=== PATIENT | female | born 1940 | race Caucasian/White ===

== ENCOUNTER 2017-11-27 00:17 | Outpatient (CLI) | payer MEDICARE, SELFPAY ==
--- NOTE | 2017-11-27 09:11 | DI.MAMMO_ITS ---
SYMPTOM/DIAGNOSIS: SCREENING, Z12.31 MAMMOGRAM: 11/27 Mammograms were interpreted according to the usual protocol including computer analysis with CAD system, tomosynthesis and C view imaging. The breasts are of moderate density with fairly symmetrical distribution of fibroglandular tissue. No dominant mass or clumped microcalcification is identified in either breast. The current examination is compared with previous examinations including 2015 and there has been no gross interval change in appearance in comparison with previous studies. CONCLUSION: No specific evidence of malignancy at this time. Routine screening examinations are suggested at yearly intervals in this age group according to the ACS/ACR guidelines. Category 1, breast density category B. MQSA ASSESSMENT OF FINDINGS: Negative. Category 1. Patient will receive a letter notifying them of these results. BI-RADS category B. There are scattered areas of fibroglandular density.
== END 2017-11-27 00:37 ==
PROVIDERS: Visit Provider Nurse Practitioner Gerontology
DX: Z12.31 Encounter for screening mammogram for malignant neoplasm of breast (principal)
CPT/HCPCS: 77063; 77067

== ENCOUNTER 2017-12-18 00:57 | Outpatient (CLI) | payer MEDICARE, SELFPAY ==
[2017-12-18 13:12] LABS: ALT 17 U/L (12-78); AST 16 U/L (15-37); Albumin 3.4 g/dL (3.4-5.0); Alkaline Phosphatase 51 U/L (46-116); Anion Gap 8.1 mmol/L (3-11); BUN 16 mg/dL (7-18); Bilirubin, Total 0.6 mg/dL (0.2-1.0); CO2 31.9 mmol/L (21.0-32.0); CREATININE 0.87 mg/dL (0.55-1.02); Calcium 9.3 mg/dL (8.5-10.1); Chloride 100 mmol/L (98-107); Cholesterol 198 mg/dL (50-200); Glucose 96 mg/dL (70-100); HDL Cholesterol 60 mg/dL (40-60); LDL CHOLESTEROL 128 mg/dL (<100); Potassium 3.3 mmol/L (3.5-5.1); Sodium 140 mmol/L (136-145); TSH (W/Ref FT4) 1.81 uIU/mL (0.358-3.74); Triglyceride 144 mg/dL (30-150)
== END 2017-12-18 01:17 ==
PROVIDERS: Visit Provider Nurse Practitioner Gerontology
DX: E03.9 Hypothyroidism, unspecified (principal); E78.5 Hyperlipidemia, unspecified; I10 Essential (primary) hypertension
CPT/HCPCS: 36415; 80053; 80061; 83721; 84443

== ENCOUNTER 2018-01-30 01:10 | Outpatient (CLI) | payer MEDICARE, SELFPAY ==
[2018-01-30 13:09] LABS: Potassium 3.2 mmol/L (3.5-5.1)
== END 2018-01-30 01:30 ==
DX: E87.6 Hypokalemia (principal)
CPT/HCPCS: 36415; 84132

== ENCOUNTER 2018-06-27 11:51 | Outpatient (CLI) | payer MEDICARE, SELFPAY ==
[2018-06-27 13:19] LABS: Potassium 4.4 mmol/L (3.5-5.1)
== END 2018-06-27 12:11 ==
DX: E87.6 Hypokalemia (principal)
CPT/HCPCS: 36415; 84132

== ENCOUNTER 2018-07-12 02:26 | Outpatient (CLI) | payer MEDICARE, SELFPAY ==
[2018-07-12] MEDS: Inhaler, Assist Device 1 EACH MC (08:47)
[2018-07-12] MEDS: Albuterol HFA 18 GM 200 PUFF INH IH (08:47)
--- NOTE | 2018-07-12 13:41 | PFT_ITS ---
PULMONARY FUNCTION TEST REPORT DATE OF SERVICE: July 12, 2018 REQUESTING PROVIDER: Kayla Jalloh N.P. Spirometry shows severe obstructive airways disease with significant bronchodilator response. Lung volumes show no evidence of restriction. Diffusion capacity severely reduced, which is mildly reduced when corrected to alveolar volume. Airways resistance markedly elevated. IMPRESSION: Severe obstructive airways disease with significant bronchodilator response. This is associated with severe diffusion defect and markedly elevated airways resistance. Clinical correlation recommended. SHARA/bud D/
== END 2018-07-12 02:46 ==
DX: J44.9 Chronic obstructive pulmonary disease, unspecified (principal); R06.09 Other forms of dyspnea; Z87.891 Personal history of nicotine dependence
CPT/HCPCS: 94060; 94150; 94726; 94729

== ENCOUNTER 2018-12-06 03:34 | Outpatient (CLI) | payer MEDICARE, SELFPAY ==
[2018-12-06 13:03] LABS: ALT 15 U/L (14-59); AST 17 U/L (15-37); Albumin 3.3 g/dL (3.4-5.0); Alkaline Phosphatase 52 U/L (46-116); BUN 13 mg/dL (7-18); Bilirubin, Total 0.5 mg/dL (0.2-1.0); CREATININE 0.92 mg/dL (0.55-1.02); Calcium 9.1 mg/dL (8.5-10.1); Calculated LDL 115 mg/dL; Chloride 99 mmol/L (98-107); Cholesterol 200 mg/dL (50-200); Estimated GFR 59.51 (mL/min/1.73m2); Glucose 101 mg/dL (70-100); HDL Cholesterol 56 mg/dL (40-60); Potassium 4.1 mmol/L (3.5-5.1); Sodium 141 mmol/L (136-145); TSH (W/Ref FT4) 2.15 uIU/mL (0.36-3.74); Triglyceride 149 mg/dL (30-150)
== END 2018-12-06 03:54 ==
DX: E78.5 Hyperlipidemia, unspecified (principal); E87.6 Hypokalemia; G47.00 Insomnia, unspecified; I10 Essential (primary) hypertension; J44.9 Chronic obstructive pulmonary disease, unspecified; K63.5 Polyp of colon; Z80.0 Family history of malignant neoplasm of digestive organs; E03.9 Hypothyroidism, unspecified
CPT/HCPCS: 36415; 80053; 80061; 84443

== ENCOUNTER 2019-07-23 01:47 | Outpatient (CLI) | payer MEDICARE, SELFPAY ==
[2019-07-23 13:58] LABS: Potassium 3.7 mmol/L (3.5-5.1); TSH (W/Ref FT4) 2.15 uIU/mL (0.36-3.74)
== END 2019-07-23 02:07 ==
DX: E03.9 Hypothyroidism, unspecified (principal); E87.6 Hypokalemia; G47.00 Insomnia, unspecified
CPT/HCPCS: 36415; 84132; 84443

== ENCOUNTER 2019-08-27 01:35 | Outpatient (CLI) | payer MEDICARE, SELFPAY ==
--- NOTE | 2019-08-27 10:28 | DI.MAMMO_ITS ---
EXAM: MG MAMMO SCREENING CLINICAL HISTORY: screening, Z12.39 TECHNIQUE: Bilateral full field digital CC and MLO mammographic images were obtained with 3D tomosyn thesis and utilizing computer aided detection (CAD). COMPARISON: Available for comparison. FINDINGS: Masses/Architectural Distortion: None seen. Microcalcifications: No suspicious pleomorphic-type are seen. Skin Thickening/Nipple Retraction: None. IMPRESSION: 1. No significant interval change with no specific features of malignancy noted. 2. Unless there is more urgent need, screening mammography is recommended, as per [employer] guidelines. BI-RADS Category 1 - Negative Breast Density - Category B - Scattered areas of fibroglandular density A negative radiographic report should not delay biopsy if a dominant or clinically suspicious mass is present. Up to ten percent of cancers are not identified on mammography. A negative report may reinforce clinical impression. Adenosis and dense breasts may obscure an underlying neoplasm. False positive reports average 6 to 10%. Patient will receive a letter notifying them of these results.
== END 2019-08-27 01:55 ==
DX: Z12.31 Encounter for screening mammogram for malignant neoplasm of breast (principal)
CPT/HCPCS: 77063; 77067

== ENCOUNTER 2020-01-01 03:01 | Outpatient (CLI) | payer MEDICARE, SELFPAY ==
[2020-01-01 13:29] LABS: ALT 17 U/L (14-59); AST 15 U/L (15-37); Albumin 3.7 g/dL (3.4-5.0); Alkaline Phosphatase 49 U/L (46-116); Anion Gap 9.8 mmol/L (3-11); BUN 16 mg/dL (7-18); Bilirubin, Total 0.6 mg/dL (0.2-1.0); CO2 29.2 mmol/L (21.0-32.0); CREATININE 0.91 mg/dL (0.55-1.02); Calcium 9.2 mg/dL (8.5-10.1); Chloride 101 mmol/L (98-107); Estimated GFR 59.94 (mL/min/1.73m2); Glucose 105 mg/dL (74-106); Potassium 4.1 mmol/L (3.5-5.1); Sodium 140 mmol/L (136-145); TSH (W/Ref FT4) 1.88 uIU/mL (0.36-3.74); Total Protein 7.1 g/dL (6.4-8.2)
== END 2020-01-01 03:21 ==
DX: E03.9 Hypothyroidism, unspecified (principal); I10 Essential (primary) hypertension; G47.00 Insomnia, unspecified
CPT/HCPCS: 36415; 80053; 84443

== ENCOUNTER 2020-06-08 03:20 | Outpatient (CLI) | payer MEDICARE, SELFPAY ==
[2020-06-09 14:15] LABS: COVID-19 RT-PCR UVMMC Result Negative (Negative)
== END 2020-06-08 03:21 | disposition home or self-care (01) ==
LOC: LBO 03:20
DX: Z20.822 Contact with and (suspected) exposure to COVID-19 (principal)
CPT/HCPCS: U0003; U0005

== ENCOUNTER → 2020-06-12 12:49 | Outpatient (BNVA) | payer MEDICARE, SELFPAY | PROVIDERS: Visit Provider Physical Therapy Assistant | DX: Z12.11 Encounter for screening for malignant neoplasm of colon (principal); Z80.0 Family history of malignant neoplasm of digestive organs; I10 Essential (primary) hypertension; J44.9 Chronic obstructive pulmonary disease, unspecified ==

== ENCOUNTER 2020-06-26 02:26 | Outpatient (CLI) | payer MEDICARE, SELFPAY ==
[2020-06-26 10:26] LABS: Source Nasal/Nares
[2020-06-26 13:33] LABS: COVID-19 PCR Negative (Negative)
== END 2020-06-26 02:27 | disposition home or self-care (01) ==
LOC: LBO 02:26
PROVIDERS: Visit Provider Surgery
DX: Z20.822 Contact with and (suspected) exposure to COVID-19 (principal); Z01.818 Encounter for other preprocedural examination
CPT/HCPCS: 87635

== ENCOUNTER 2020-06-29 07:20 | Day surgery (SDC) | payer MEDICARE, SELFPAY ==
--- NOTE | 2020-06-29 06:32 | W.COLOREPORT ---
Date of service: 06/29/20 Time of Service: 08:12 Colonoscopy Report Date of procedure: 06/29/20 Pre-op diagnosis general: Family history of colon cancer, screening Post-op diagnosis procedure note: same Procedure: Colonoscopy with polypectomy Surgeon: Soledad Zavala Anesthesia Type: General:No Airway (ASA 2/ Efrain Catherine CRNA) Estimated blood loss (mL): 5 Pathology: other (Ascending, Transverse, sigmoid x2 and rectal polyps x2) Complications: None Disposition: same day Indications: The patient is here for Colonoscopy pre-op. Her last screening was in 2013 and was remarkable for hyperplastic polyps. She has a family history of colon cancer at the age of 47. She has not had any bowel habit changes. -Discussed colonoscopy bowel prep as well as the procedure. Discussed possible complications of the procedure to include bleeding, pain, perforation, missed small lesion/polyp, sore throat, aspiration and adverse reaction to the medications. Questions were answered to patient?s satisfaction. No guarantees were implied or given. Prep: Miralax/Dulcolax Procedure Start Time: 08:12 Procedure End Time: 08:45 Retraction Time: 27 minutes Findings: Mild sigmoid diverticulosis Internal and external hemorrhoids Multiple polyps Polyp at 20 cm was 2 cm in size Procedure Description: After informed consent was obtained the patient was taken to the procedure room and placed in a left decubitous position. Monitors were applied and a time out was done. The patients name, date of , procedure, allergies to medications and metal in their body was reviewed. The patient was then sedated. Once sedated and comfortable a rectal exam was done. External exam revealed one polyp. Internal exam revealed a normal sphincter tone and no palpable masses. The scope was then introduced and retro-flexed. Grade 1 internal hemorrhoids were noted. One polyp was identified on retro-flexion. No masses were identified on retro-flexion. The scope was then advanced to the cecum without difficulty. The ileocecal vlave and appendiceal orifice were identified. The prep was adequate. The scope was then slowly retracted over 27 minutes back into the rectum. Polyps were removed with cold forceps in the ascending, transverse, sigmoid and rectum x2. One 2 cm pedunculated polyp was removed with a hot snare in the sigmoid colon at 20 cm. There was mild diverticulosis noted in the sigmoid colon. The scope was removed and the patient was woken up and taken back to Same day surgery in stable condition. The patient tolerated the procedure well and there were no immediate complications. Follow up: The patient should follow up in 3 years unless they develop changes in bowel habits or other new gastrointestinal complaints.
--- NOTE | 2020-06-29 06:33 | W.PM.DSUDISC ---
Discharge Plan Disposition Patient Disposition: HOME Condition: Good Discharge Details Reason For Visit: COlonoscopy Attending Provider: Soledad Zavala Primary Care Provider: Kayla Jalloh Home Meds and New Rx's Prescriptions: Continued ipratropium-albuterol 0.5 mg-3 mg(2.5 mg base)/3 mL solution for nebulization 3 ml Inhalation QID PRN (Reason: wheezing: COPD) Qty: 90 RF: 3 potassium chloride 20 mEq tablet extended release 20 meq PO DAILY Qty: 90 RF: 4 meclizine 25 mg tablet 25 mg PO BID PRN (Reason: dizziness) Qty: 90 RF: 3 levothyroxine [Synthroid] 50 mcg tablet 50 mcg PO DAILY Qty: 90 RF: 4 hydrochlorothiazide 25 mg tablet 25 mg PO DAILY Qty: 90 RF: 4 albuterol sulfate [ProAir HFA] 90 mcg/actuation HFA aerosol inhaler 2 puff Inhalation Q6H PRN Qty: 18 RF: 3 clobetasol-emollient 15 GM cream 1 gm Topical DAILY PRNQty: 30 RF: 0 ibuprofen 800 mg tablet 800 mg PO TID PRN (Reason: pain) Qty: 270 RF: 3 lisinopril 10 mg tablet 10 mg PO DAILY Qty: 90 RF: 3 aspirin 325 mg Tablet 650 mg PO DAILY PRNRF: 0 Discontinued bisacodyl [Dulcolax (bisacodyl)] 5 mg tablet,delayed release (DR/EC) 5 mg PO ONCE Qty: 4 RF: 0 polyethylene glycol 3350 17 gram/dose powder 238 g PO ONCE Qty: 238 RF: 0 Discharge Instructions Instructions: Hemorrhoids (DC), Diverticulosis (DC), Colorectal Polyps (DC) Additional Instructions: Findings: hemorrhoids mild diverticulosis polyps Follow up: 3 years Please call if you develop: fevers >101.5 Nausea or Vomiting Abdominal pain that is not transient Rectal bleeding that is more then a tbsp A hard abdomen and inability to pass gas DAY SURGERY UNIT POST ENDOSCOPY INSTRUCTIONS Instructions for everyone who is given Anesthesia: For your safety, please do the following for the next 24 Hours: a. Do not drive or operate dangerous equipment b. Do not drink alcohol beverages or use any recreational drugs for the first 24 hours or while taking pain medications. The medications in your body may have a reaction that can be dangerous. c. Do not make any important decisions or sign any important papers 1. Generally there are no restrictions on your activity after a day or so has gone by, but you may feel a bit fatigued for a few days. 2. After you arrive home you may have a light meal and return to a normal diet as you can tolerate it without feeling sick to your stomach. 3. After surgery, you may feel pain or discomfort. This should be only transient, but if it persists please contact your doctor. 4. If there are any questions regarding the findings of your procedure, please feel free to contact your doctor. 6. If you are unable to contact your doctor with a problem, contact the hospital at [phone]. 7. Continue all your regular medications unless directed otherwise. I understand the above instructions and have no questions. Signature of Patient or Responsible Adult Escort Date/Time Name of Responsible Adult Escort Signature of Nurse Date/Time Activity:: Activity as Tolerated Diet:: high fiber diet Discharge Orders Discharge Orders: Discharge Order (Routine); Ordered 06/29/20 Ordered By: Soledad Zavala
[2020-06-29 07:39] VITALS: BP 141/93; PULSE 101; RESP 18; TEMP 36.4; O2SAT 96
--- NOTE | 2020-06-29 07:41 | ANES.PREOP_ITS ---
General Info Date of Service Date Performed: 06/29/20 Height: 5 ft 3 in Weight: 81.335 kg Body Mass Index (BMI): 31.7 Surgical Procedure: Operation Date: 06/29/20 08:35 Proposed Procedures Side Surgeon p Colonoscopy Soledad Zavala MD Meds Allergies and Home Medications Allergies Allergy/AdvReac Type Severity Reaction Status Date / Time amoxicillin Allergy Mild rash Verified 06/29/20 07:43 Home Medication Medication Instructions Recorded clobetasol-emollient 1 gm TOPICAL DAILY PRN #30 gm 06/06/16 ipratropium 0.5 mg-albuterol 3 mg 3 ml INHALATION QID PRN #90 ml 06/27/18 (2.5 mg base)/3 mL nebulization soln albuterol sulfate 90 mcg/actuation 2 puff INHALATION Q6H PRN #18 gm 01/01/19 aerosol inhaler ibuprofen 800 mg tablet 800 mg PO TID PRN #270 tab-cap 03/06/19 hydrochlorothiazide 25 mg tablet 25 mg PO DAILY #90 tab-cap 08/01/19 levothyroxine 50 mcg tablet 50 mcg PO DAILY #90 tab-cap 08/01/19 meclizine 25 mg tablet 25 mg PO BID PRN #90 tab 08/01/19 potassium chloride 20 mEq 20 meq PO DAILY #90 tab 08/01/19 tablet,extended release lisinopril 10 mg tablet 10 mg PO DAILY #90 tab 11/11/19 aspirin 650 mg PO DAILY PRN 06/25/20 Current Visit Medications: Current Medications Generic Name Dose Route Start Last Admin Trade Name Freq PRN Reason Stop Dose Admin Hyoscyamine Sulfate 0.125 mg 06/29/20 06:34 Hyoscyamine 0.125 Mg Sl/Oral/Chew SL DIRECTED PRN Ringer's Solution 1,000 mls @ 80 mls/hr 06/29/20 06:00 IV 07/26/20 23:59 IN[facility]ION [facility] [place] IV Miscellaneous Supplies 1 each 06/29/20 06:00 Iv Access IV 07/26/20 23:59 DIRECTED DEYVI Ondansetron HCl 4 mg 06/29/20 06:34 Ondansetron 4 Mg/2 Ml Vial IVP Q4H PRN PRN Nausea / Vomiting Sodium Chloride 0 ml 06/29/20 06:00 Normal Saline Flush 10 Ml Syr IV 07/26/20 23:59 PRN PRN Sodium Chloride 0 ml 06/29/20 06:00 Normal Saline 10 Ml Vial IJ 07/26/20 23:59 DIRECTED PRN Sterile Water 0 ml 06/29/20 06:00 Water,Injection,Sterile 10 Ml Vial IJ 07/26/20 23:59 DIRECTED PRN PFSH Active Problems Active Problems: Problem Status Onset Code Increased body mass index (BMI) R63.8 History of knee surgery Z98.890 Hypokalemia E87.6 Chronic obstructive lung disease J44.9 Vertigo 11/27/14 R42 Knee pain M25.569 Keratosis 11/27/14 L57.0 Hypothyroidism E03.9 Hyperplastic colon polyp 07/29/13 K63.5 Hyperlipidemia E78.5 History of tobacco use Z87.891 Family history of colon cancer Z80.0 Essential hypertension 12/07/12 I10 Medical History Medical History Chronic obstructive lung disease Essential hypertension (12/07/12) Family history of colon cancer colon cancer; Dad at 47 History of tobacco use Hyperlipidemia Hyperplastic colon polyp (07/29/13) 07/29/13; DR. Barby GUILLEN Hypokalemia Hypothyroidism Increased body mass index (BMI) Keratosis (11/27/14) Knee pain Vertigo (11/27/14) Surgical History Surgical History Colonoscopy - MAC 07/29/13; [employer]NEE [employer]PA[employer] RIGHT Tobacco Smoking/Tobacco Use Status: Former Tobacco Use Tobacco: How many years used: 35 Passive smoking exposure: Yes Second hand exposure: No Alcohol Alcohol Intake: never Substance Use Substance use: Never Substance use type: does not use Vital Signs and Lab Results Lab Results Blood Type / Crossmatch: No Data to Display Complete Blood Count: No Data to Display Complete Metabolic Panel: Sodium Level 140 mmol/L (136-145) 01/01/20 12:05 01/01/20 Potassium Level 4.1 mmol/L (3.5-5.1) 01/01/20 12:05 01/01/20 Chloride Level 101 mmol/L (98-107) 01/01/20 12:05 01/01/20 Carbon Dioxide Level 29.2 mmol/L (21.0-32.0) 01/01/20 12:05 01/01/20 Blood Urea Nitrogen 16 mg/dL (7-18) 01/01/20 12:05 01/01/20 Creatinine 0.91 mg/dL (0.55-1.02) 01/01/20 12:05 01/01/20 Calcium Level 9.2 mg/dL (8.5-10.1) 01/01/20 12:05 01/01/20 Albumin 3.7 g/dL (3.4-5.0) 01/01/20 12:05 01/01/20 Glucose Level 105 mg/dL (74-106) 01/01/20 12:05 01/01/20 Liver Function Panel: Alanine Aminotransferase (ALT/SGPT) 17 U/L (14-59) 01/01/20 12:05 Aspartate Amino Transf (AST/SGOT) 15 U/L (15-37) 01/01/20 12:05 01/01/20 Coagulation Panel: No Data to Display Cardiac Panel: No Data to Display Arterial Blood Gas: No Data to Display Venous Blood Gas: No Data to Display Pancreas Panel: No Data to Display Thyroid Panel: Thyroid Stimulating Hormone (TSH) 1.88 uIU/mL (0.36-3.74) 01/01/20 12:05 01/01/20 Infectious Disease: Coronavirus (COVID-19)(PCR) Negative (Negative) 06/26/20 08:43 06/26/20 Coronavirus 2019 Source Nasal/nares 06/26/20 08:43 06/26/20 Blood Cultures: No Data to Display Toxicology Panel: No Data to Display Panel: No Data to Display Imaging and Studies Imaging and Studies Pulmonary Function Test Summary:: june 2018 Severe obstructive airways disease with significant bronchodilator response. This is associated with severe diffusion defect and markedly elevated airways resistance Severe obstructive airways disease with significant bronchodilator response. This is associated with severe diffusion defect and markedly elevated airways resistance Severe obstructive airways disease with significant bronchodilator response. This is associated with severe diffusion defect and markedly elevated airways resistance Anesthesia Assessment and Plan Anesthesia History Personal History: No History of Anesthesia Complications Family History: No Family History of Anesthesia Complications Exercise Tolerance Exercise Tolerance: Metabolic Equivalents>4 Cardiac & Pulmonary Exam Cardiac Exam: Normal S1/S2 Heart Sounds Pulmonary Exam: Clear Bilateral Breath Sounds Airway Exam Known Difficult Airway: No Mallampati Class: 2 Mouth Opening: Normal (> 3cm) Thyromental Distance: Less than 3 cm Neck Range of Motion: Full ROM Neck Circumference: Normal Teeth Condition: Removable Dentures/Plates Upper and Edentulous ASA Classification ASA Score: ASA 3 ASA Emergency: No NPO Status NPO Status: NPO Clears >2 hours, Solids >8 hours Anesthesia Plan Anesthesia Technique: General Anesthesia Airway Planned: Natural Airway Monitors Used: Standard Monitors
[2020-06-29] MEDS: Lactated Ringers 1,000 ML 80 ML IV (08:00)
[2020-06-29 08:02] VITALS: BMI 31.7
--- NOTE | 2020-06-29 08:15 | BOWEL_PTH ---
PATIENT: Chichi Mendoza LOC: [facility] U#:[id number] AGE/SX: 79/F ROOM: RE06/29/[address]: Soledad Zaavla MD : [id number] BED: DIS: 06/29/2020 SPEC #: [id number] RECD: 06/29/20 12:59 STATUS: ODETTE REIrma #: [id number] JANETH: 06/29/20 08:[address]: Soledad Zavala DEPT: Surgical Specimen RECD BY: Gini Fong ENTERED: 06/29/20 13:01 SP TYPE: Bowel OTHR DR: Kayla Jalloh APRN Tissues: 1 - BIOPSY BOWEL 2 - BIOPSY BOWEL 3 - BIOPSY BOWEL 4 - BIOPSY BOWEL 5 - BIOPSY BOWEL Procedures: GROSS AND MICRO LEVEL 4 Comments: [id number]
[2020-06-29] MEDS: Endoscopic Tattoo 5 ML SYR IJ (08:44)
[2020-06-29 08:53] VITALS: BP 113/64; PULSE 79; RESP 18; TEMP 36.2; O2SAT 94
--- NOTE | 2020-06-29 08:54 | W.ANESPOSTOP ---
Postoperative Evaluation Date, Time and Location Date Performed: 06/29/20 Time Performed: 08:54 Patient Location: Day Surgery Unit Vital Signs Most Recent Imported Vital Signs: Most Recent Vital Signs Temp Pulse Resp BP Pulse Ox 36.4 C L 101 H 18 141/93 H 96 06/29/20 07:39 06/29/20 07:39 06/29/20 07:39 06/29/20 07:39 06/29/20 07:39 Most Recent Manually Entered Vital Signs: Adult Blood Pressure: 113/64 Heart Rate: 78 Respirations: 16 Oxygen Saturation (%): 94 Temperature (C): 36.3 C Pain Score (0-10 Scale): 0 Pain Score Most Recent Pain Score: Most Recent Pain Score Pain Level 0 06/29/20 07:39 Assessment Mental Status: Arousable with meaningful communication Airway and Respiratory Function: Patent airway with normal (patient baseline) respiratory exam Cardiovascular Function: Hemodynamically Stable Hydration Status: Adequately Hydrated Nausea & Vomiting: No Nausea or Vomiting Pain: Pt. Denies Any Pain Peripheral Nerve Block: Patient did not receive a nerve block
[2020-06-29 08:55] VITALS: BP 113/64; PULSE 78; RESP 16; TEMPC 36.3; O2SAT 94
[2020-06-29 09:15] VITALS: BP 128/73; PULSE 78; RESP 18; TEMP 36; O2SAT 96
== END 2020-06-29 09:50 | disposition home or self-care (01) ==
LOC: SUR 07:20
PROVIDERS: Visit Provider Surgery
PROC: 0DJD8ZZ Inspection of Lower Intestinal Tract, Via Natural or Artificial Opening Endoscopic (ICD-10-PCS; CPT 45378; principal; 2020-06-29 08:30)
DX: Z12.11 Encounter for screening for malignant neoplasm of colon (principal); D12.3 Benign neoplasm of transverse colon; D12.5 Benign neoplasm of sigmoid colon; K62.1 Rectal polyp; Z80.0 Family history of malignant neoplasm of digestive organs; J44.9 Chronic obstructive pulmonary disease, unspecified; E03.9 Hypothyroidism, unspecified; I10 Essential (primary) hypertension; E78.5 Hyperlipidemia, unspecified; Z86.010 Personal history of colon polyps; K57.30 Diverticulosis of large intestine without perforation or abscess without bleeding; K64.0 First degree hemorrhoids
CPT/HCPCS: 45385; 45380; 88305

== ENCOUNTER 2020-10-14 01:08 | Outpatient (CLI) | payer MEDICARE, SELFPAY ==
--- NOTE | 2020-10-14 07:15 | DI.MAMMO_ITS ---
Exam(s) MAMMO SCREENING EXAM: MAMMO SCREENING CLINICAL HISTORY: screening,Z12.39. TECHNIQUE: Bilateral full field digital CC and MLO mammographic images were obtained with 3D tomosyn thesis and utilizing computer aided detection (CAD). COMPARISON: Prior mammograms dating back to 2010, the most recent being July 2011. FINDINGS: There are no new spiculated masses nor malignant appearing microcalcification groups. There is no significant architectural distortion nor skin thickening-retraction. IMPRESSION: No radiographic evidence of malignancy. BI-RADS Category 1 - Negative Breast Density - Category B - Scattered areas of fibroglandular density Breast density Category C or D implies that the patient has dense breast tissue. Dense breast tissue can make it harder to find cancer on a mammogram. Dense breast tissue is also associated with an incr eased risk of breast cancer. This information about the result of the mammogram report was provided to the patient to raise their awareness. Use this report when you speak with the patient about their risks for breast cancer, which includes their family history. At that time, you may recommend additional screening tests (Ultrasoun d or MRI) as these tests may add significant information. A negative radiographic report should not delay biopsy if a dominant or clinically suspicious mass is present. Up to ten percent of cancers are not identified on mammography. A negative report may reinforce clinical impression. Adenosis and dense breasts may obscure an underlying neoplasm. False positive reports average 6 to 10%. Patient will receive a letter notifying them of these results.
== END 2020-10-14 01:28 ==
DX: Z12.31 Encounter for screening mammogram for malignant neoplasm of breast (principal)
CPT/HCPCS: 77063; 77067

== ENCOUNTER 2020-12-30 01:41 | Outpatient (CLI) | payer MEDICARE, SELFPAY ==
[2020-12-30 12:54] LABS: ALT 17 U/L (14-59); AST 15 U/L (15-37); Albumin 3.6 g/dL (3.4-5.0); Alkaline Phosphatase 53 U/L (46-116); Anion Gap 7.7 mmol/L (3-11); BUN 21 mg/dL (7-18); Bilirubin, Total 0.5 mg/dL (0.2-1.0); CO2 31.3 mmol/L (21.0-32.0); Calcium 9.1 mg/dL (8.5-10.1); Chloride 100 mmol/L (98-107); Estimated GFR 53.62 (mL/min/1.73m2); Glucose 98 mg/dL (74-106); Potassium 4.2 mmol/L (3.5-5.1); Sodium 139 mmol/L (136-145); TSH (W/Ref FT4) 2.91 uIU/mL (0.36-3.74)
== END 2020-12-30 01:42 | disposition home or self-care (01) ==
LOC: LOS 01:41
DX: I10 Essential (primary) hypertension (principal); E03.9 Hypothyroidism, unspecified; E87.6 Hypokalemia; G47.00 Insomnia, unspecified
CPT/HCPCS: 36415; 80053; 84443

== ENCOUNTER → 2021-10-18 02:58 | Outpatient (CLI) | payer MEDICARE, SELFPAY ==
--- NOTE | 2021-10-18 07:00 | DI.MAMMO_ITS ---
Exam(s) MAMMO SCREENING EXAM: MAMMO SCREENING CLINICAL HISTORY: screening,z12.39 TECHNIQUE: Bilateral full field digital CC and MLO mammographic images were obtained with 3D tomosyn thesis and utilizing computer aided detection (CAD). COMPARISON: Available for comparison. FINDINGS: Masses/Architectural Distortion: None seen. Microcalcifications: No suspicious pleomorphic-type are seen. Skin Thickening/Nipple Retraction: None. IMPRESSION: 1. No significant interval change with no specific features of malignancy noted. 2. Unless there is more urgent need, screening mammography is recommended, as per [place] [employer] guidelines. BI-RADS Category 1 - Negative Breast Density - Category B - Scattered areas of fibroglandular density Breast density category C or D implies that the patient has dense breast tissue. Dense breast tissue is very common and is not abnormal but dense breast tissue can make it harder to find cancer on a ma mmogram. Also, dense breast tissue may increase their breast cancer risk. This information about the result of the mammogram report was provided to the patient to raise their awareness. Use this report when you speak with the patient about their risks for breast cancer, which includes their family hist ory. At that time, you may recommend for more screening tests (Ultrasound or MRI) as they might be us eful based on their risk. A negative radiographic report should not delay biopsy if a dominant or clinically suspicious mass is present. Up to ten percent of cancers are not identified on mammography. A negative report may reinforce clinical impression. Adenosis and dense breasts may obscure an underlying neoplasm. False positive reports average 6 to 10%. Patient will receive a letter notifying them of these results.
== END ==
DX: Z12.31 Encounter for screening mammogram for malignant neoplasm of breast (principal)
CPT/HCPCS: 77063; 77067

== ENCOUNTER 2021-12-21 13:49 | Outpatient (REF) | payer MEDICARE, SELFPAY ==
[2021-12-21 23:11] LABS: Anion Gap 4.9 mmol/L (3-11); BUN 23 mg/dL (7-18); CO2 30.1 mmol/L (21.0-32.0); CREATININE 1.1 mg/dL (0.55-1.02); Calcium 9.7 mg/dL (8.5-10.1); Chloride 99 mmol/L (98-107); Estimated GFR 51.11 (mL/min/1.73m2); Glucose 103 mg/dL (74-106); NT-proBNP 73 pg/mL (<300); Potassium 4.5 mmol/L (3.5-5.1); Sodium 134 mmol/L (136-145)
== END 2021-12-21 13:50 | disposition home or self-care (01) ==
LOC: LBN 13:49
PROVIDERS: Visit Provider Nurse Practitioner Family
DX: J44.1 Chronic obstructive pulmonary disease with (acute) exacerbation (principal)
CPT/HCPCS: 80048; 83880; 85025

== ENCOUNTER → 2021-12-21 18:20 | Outpatient (CLI) | payer MEDICARE, SELFPAY ==
--- NOTE | 2021-12-21 13:42 | DI.RAD_ITS ---
Exam(s) XR CHEST 2V PA LATERAL EXAM: XR CHEST 2V PA LATERAL CLINICAL HISTORY: evaluate for pneumonia, exac copd, j44.1. TECHNIQUE: 2D digital imaging was performed. COMPARISON: CR CHEST 2 VIEWS PA,LAT from 12/30/2010 FINDINGS: 2 views: Heart size is normal. The mediastinum is not widened. Lungs are clear. No infiltrates nor pleural effusions. IMPRESSION: No acute pulmonary findings.No significant change compared to 12/30/2010 DATA REPOSITORY: RADIATION DOSE DELIVERED:
== END ==
PROVIDERS: Visit Provider Nurse Practitioner Family
DX: J44.1 Chronic obstructive pulmonary disease with (acute) exacerbation (principal)
CPT/HCPCS: 71046

== ENCOUNTER 2022-02-02 04:02 | Outpatient (CLI) | payer MEDICARE, SELFPAY ==
[2022-02-02 12:42] LABS: ALT 13 U/L (14-59); AST 16 U/L (15-37); Albumin 3.6 g/dL (3.4-5.0); Alkaline Phosphatase 51 U/L (46-116); Anion Gap 6.9 mmol/L (3-11); BUN 26 mg/dL (7-18); Bilirubin, Total 0.4 mg/dL (0.2-1.0); CO2 29.1 mmol/L (21.0-32.0); CREATININE 1.2 mg/dL (0.55-1.02); Calcium 9.3 mg/dL (8.5-10.1); Chloride 101 mmol/L (98-107); Estimated GFR 46.05 (mL/min/1.73m2); Glucose 103 mg/dL (74-106); Potassium 4.5 mmol/L (3.5-5.1); Sodium 137 mmol/L (136-145); TSH (W/Ref FT4) 2.48 uIU/mL (0.36-3.74); Total Protein 7.3 g/dL (6.4-8.2)
== END 2022-02-02 04:03 | disposition home or self-care (01) ==
LOC: LOS 04:02
PROVIDERS: PCP Nurse Practitioner Family; Visit Provider Nurse Practitioner Family
DX: E03.9 Hypothyroidism, unspecified (principal); I10 Essential (primary) hypertension
CPT/HCPCS: 36415; 80053; 84443

== ENCOUNTER → 2022-02-15 12:04 | Outpatient (CLI) | payer MEDICARE, SELFPAY ==
--- NOTE | 2022-02-15 11:45 | DI.CT_ITS ---
Exam(s) CT ABDOMEN PELVIS W EXAM: CT ABDOMEN PELVIS W CLINICAL HISTORY: pain RLQ PAIN R10.31. TECHNIQUE: Imaging Protocol: Axial computed tomography images with coronal and sagittal reformatted images were created and reviewed CONTRAST MATERIAL: Intravenous: Omnipaque-350 100cc Oral: Yes. Oral contrast was also administered for bowel opacification. COMPARISON: No exams were available for comparison FINDINGS: VISUALIZED LUNG BASES: No nodules nor pleural effusions evident. ABDOMEN: There is no ascites. LIVER: There are no focal hepatic lesions evident . GALLBLADDER/BILIARY: Cholelithiasis evident. There are few tiny gallstones. No gallbladder wall chan ma. No pericholecystic fluid. CBD is not dilated. PANCREAS: The pancreas is somewhat atrophic. There are no discrete focal pancreatic lesions. Pancre atic duct is not dilated. No peripancreatic fluid collections. SPLEEN: Spleen is not enlarged. No obvious intrasplenic lesions. Splenic and portal veins are paten t. ADRENALS: There are no significant adrenal masses. KIDNEYS:There is a benign cyst in the lateral cortex of the left kidney which measures 1 cm diameter. No other focal renal findings. No calculi. No hydronephrosis. No hydroureter. No obvious abnorm ality in the nondistended urinary bladder.. ABDOMINAL AORTA: The abdominal aorta is calcified and atherosclerotic. There is a fusiform infrarena l abdominal aortic aneurysm with maximum external diameter of 3.1 cm. LYMPH NODES:There is no retroperitoneal nor paraaortic adenopathy. ABDOMINAL WALL: No evidence of significant anterior abdominal wall nor inguinal hernia. GI: There is no evidence of bowel obstruction, free air, nor abscess. No appendicitis. No diverticu litis. In the right lower quadrant there is short-segment of a small-bowel loop that appears thinned over a distance of 3 cm. (Series 4/image 65). Possibly significant versus peristaltic wave. There is no mesenteric adenopathy in this region. The diameter small bowel loops on both sides of this fi nding are normal-equal. Small bowel at the level of the ileocecal valve appears unremarkable PELVIS: GI: No evidence of appendicitis.There are few sigmoid diverticuli but no evidence of acute diverticul itis. LYMPH NODES: There is no intrapelvic nor inguinal adenopathy. REPRODUCTIVE: Uterus and adnexal regions appear unremarkable. No free fluid in the pelvis. URINARY BLADDER: No calculi nor obvious masses evident OSSEOUS: No significant osseous lesions. No fractures evident. IMPRESSION: 1. No evidence of acute appendicitis. Sigmoid diverticuli but no evidence of acute diverticulitis. No free fluid. 2. In the right lower quadrant there is a 3 cm length of ileum which appears possibly strictured. Th ere is a possibly this may be related to a peristaltic wave as opposed to a true strictured length of small bowel. There is no adenopathy in the adjacent mesenteric fat. Recommend small-bowel follow-t hrough examination with spot views of the distal ileum loops. 3. Gallstones noted. No gallbladder wall edema. No pericholecystic fluid 4. Abdominal aortic aneurysm with maximum diameter 3.1 cm. The abdominal aorta is quite atherosclero tic and heavily calcified. RADIATION DOSE DELIVERED: 1,159.97mGy.cm Total DLP DATA REPOSITORY: All CT scans at this facility are submitted to the National Radiology Data Registry (NRDR) Dose Index Registry (DIR) with the [employer] (ACR). RADIATION OPTIMIZATION: All CT scans at this facility use at least one of these dose optimization te chniques: automated exposure control; mA and/or kV adjustment per patient size (includes targeted exa ms where dose is matched to clinical indication); or iterative reconstruction.
[2022-02-15] MEDS: Barium Sulfate 2% W/V-Berry Smoothie 450 ML BTL 900 ML PO (13:13)
[2022-02-15] MEDS: Omnipaque 350 MG/ML 100 ML BTL IJ (15:55)
[2022-02-15] MEDS: Normal Saline Flush 10 ML SYR IVP (15:56)
[2022-02-15] MEDS: Normal Saline - Diluent 50 ML VIAL IJ (15:56)
== END ==
PROVIDERS: PCP Nurse Practitioner Family; Visit Provider Nurse Practitioner Family
DX: R10.31 Right lower quadrant pain (principal); I71.30 Abdominal aortic aneurysm, ruptured, unspecified; K80.20 Calculus of gallbladder without cholecystitis without obstruction
CPT/HCPCS: 74177; J3490

== ENCOUNTER → 2022-02-23 01:54 | Outpatient (CLI) | payer MEDICARE, SELFPAY ==
--- NOTE | 2022-02-23 06:45 | DI.RAD_ITS ---
Exam(s) RF SMALL BOWEL SERIES EXAM: RF SMALL BOWEL SERIES CLINICAL HISTORY: pain,SMALL BOWEL STRICTURE,K56.699 TECHNIQUE: 2D and realtime digital imaging was performed. CONTRAST MATERIAL: Oral barium contrast was administered. COMPARISON: CT CT ABDOMEN PELVIS W from 02/15/2022 FINDINGS: KUB shows no evidence of bowel obstruction. The small bowel demonstrates no structural abnormalities including structure, dilation, adhesion, or mass. The terminal ileum is identified and appears unrem arkable. Normal transit time of 30 minutes minutes. IMPRESSION: Normal small bowel. No evidence of a stricture or obstruction. RADIATION DOSE DELIVERED: chinedu Martinez=52.1 mGy
[2022-02-23] MEDS: Barium Sulfate 60% W/V 355 ML BTL PO (09:05)
== END ==
PROVIDERS: PCP Nurse Practitioner Family; Visit Provider Nurse Practitioner Family
DX: K56.699 Other intestinal obstruction unspecified as to partial versus complete obstruction (principal); R10.31 Right lower quadrant pain
CPT/HCPCS: 74250

== ENCOUNTER → 2022-10-18 12:27 | Outpatient (CLI) | payer MEDICARE, SELFPAY ==
--- NOTE | 2022-10-18 13:52 | DI.MAMMO_ITS ---
Exam(s) MAMMO SCREENING EXAM: MAMMO SCREENING CLINICAL HISTORY: screening, Z12.39. TECHNIQUE: Bilateral full field digital CC and MLO mammographic images were obtained with 3D tomosyn thesis and utilizing computer aided detection (CAD). COMPARISON: Prior mammograms were reviewed. FINDINGS: There has been no significant change in the appearance and distribution of the fibroglandular tissue. Benign-appearing nodules bilaterally are unchanged from prior mammograms. There are no new spiculated masses nor malignant appearing microcalcification groups. There is no significant architectural distortion nor skin thickening-retraction. IMPRESSION: No radiographic evidence of malignancy. Stable benign-appearing findings. BI-RADS Category 2 - Benign Findings Breast Density - Category B - Scattered areas of fibroglandular density Breast density Category C or D implies that the patient has dense breast tissue. Dense breast tissue can make it harder to find cancer on a mammogram. Dense breast tissue is also associated with an incr eased risk of breast cancer. This information about the result of the mammogram report was provided to the patient to raise their awareness. Use this report when you speak with the patient about their risks for breast cancer, which includes their family history. At that time, you may recommend additional screening tests (Ultrasoun d or MRI) as these tests may add significant information. A negative radiographic report should not delay biopsy if a dominant or clinically suspicious mass is present. Up to ten percent of cancers are not identified on mammography. A negative report may reinforce clinical impression. Adenosis and dense breasts may obscure an underlying neoplasm. False positive reports average 6 to 10%. Patient will receive a letter notifying them of these results.
== END ==
PROVIDERS: PCP Nurse Practitioner Family; Visit Provider Nurse Practitioner Family
DX: Z12.31 Encounter for screening mammogram for malignant neoplasm of breast (principal)
CPT/HCPCS: 77063; 77067

== ENCOUNTER 2023-02-14 02:51 | Outpatient (CLI) | payer MEDICARE, SELFPAY ==
[2023-02-14 12:55] LABS: Anion Gap 4.2 mmol/L (3-11); BUN 28 mg/dL (7-18); CO2 31.8 mmol/L (21.0-32.0); CREATININE 1.3 mg/dL (0.55-1.02); Calcium 9.7 mg/dL (8.5-10.1); Chloride 105 mmol/L (98-107); Estimated GFR 41.57 (mL/min/1.73m2); Glucose 120 mg/dL (74-106); Sodium 141 mmol/L (136-145)
== END 2023-02-14 02:52 | disposition home or self-care (01) ==
LOC: LOS 02:52
PROVIDERS: PCP Nurse Practitioner Family; Visit Provider Nurse Practitioner Family
DX: E03.9 Hypothyroidism, unspecified (principal); N18.30 Chronic kidney disease, stage 3 unspecified
CPT/HCPCS: 36415; 80048; 84443

== ENCOUNTER → 2023-03-09 02:32 | Outpatient (CLI) | payer MEDICARE, SELFPAY ==
--- NOTE | 2023-03-09 12:45 | DI.DEXA_ITS ---
Exam(s) XR DEXA BONE DENSITY W/WO CHAVO EXAM: XR DEXA BONE DENSITY W/WO CHAVO CLINICAL HISTORY: screening for osteoporosis IN POSTMENOPAUSAL WOMAN,Z78.0 TECHNIQUE: COMPARISON: No exams were available for comparison FINDINGS: Lateral Spine Image: Unremarkable. No compression deformities identified. Left hip: Total T-Score: 0.4 Total Z-Score: 2.5 T- and Z-scores: Within normal limits. Lumbar Spine: Total T-Score: -1.0 Total Z-Score: 1.7 T- and Z-scores: Within normal limits. IMPRESSION: No evidence of osteoporosis.
== END ==
PROVIDERS: PCP Nurse Practitioner Family; Visit Provider Nurse Practitioner Family
DX: Z13.820 Encounter for screening for osteoporosis (principal); Z78.0 Asymptomatic menopausal state
CPT/HCPCS: 77080

== ENCOUNTER 2023-11-03 00:25 | Outpatient (CLI) | payer MEDICARE, SELFPAY ==
--- OUTSIDE RECORDS SUMMARY | 2023-11-03 00:27 | XMS_ITS | Encounter Summary ---
Author Organization [facility] [place] [address] Care Team Providers Care Syrup Mixer Helper Name Role Phone Unknown Primary Care Provider Unavailabl e Encounter Details Date Type Department Care Team (Late st Contact Info) Description 05/30/2022 Telephone Dermatology at [address] [phone] Mariola Markham RN Social History Tobacco Use Types Packs/Day Years Used Date Smoking Tobacco: Former Smokeless Tobacco: Never Sex and Gender Information Value Date Recorded Sex Assigned at Not on file Gender Identity Not on file Sexual Orientation Not on file documented as of this encounter Miscellaneous Notes * Telephone Encounter - Mariola Markham RN - 05/30/2022 9:21 AM EDT Patient returned our call from earlier this morning. Patient was provided her pathology results. Patient had a shave biopsy central forehead on 05/24/2022. Diagnosis: Squamous cell carcinoma. Per Dr. Quiroz's recommendation no further treatment is needed and patient to return to the clinic 09/13/2022for her follow up appointment. Patient informed this and stated that she understood. documented in this encounter Plan of Treatment Upcoming Encounters Date Type Department Care Team (Late st Contact Info) Description 09/23/2024 1:30 PM EDT Office Visit Dermatology at [address] [phone] Og Quiroz MD [address] [place] [address], [facility] [place], [place] [id number] documented as of this encounter Visit Diagnoses Not on filedocumented in this encounter Care Teams Syrup Mixer Helper Relationship Specialty Start Date End Date Unknown None PCP - General 11/20/21 09/12/22 documented as of this encounter
--- OUTSIDE RECORDS SUMMARY | 2023-11-03 00:27 | XMS_ITS | Encounter Summary ---
Author Organization [facility] Address [address] [place] [address] Care Team Providers Care Booking Manager Name Role Phone Diane Jon MD Primary Care Provider [phone] Encounter Details Date Type Department Care Team (Late st Contact Info) Description 06/08/2020 Lab Requisition [facility] Pathology & Laboratory Medicine - [facility] [address] [place], [place] [id number] Outr Resulting Lab, Provider Social History Tobacco Use Types Packs/Day Years Used Date Smoking Tobacco: Never Assessed Sex and Gender Information Value Date Recorded Sex Assigned at Not on file Gender Identity Not on file Sexual Orientation Not on file documented as of this encounter Plan of Treatment Not on file documented as of this encounter Procedures Procedure Name Priority Date/Time Associated Diagnosis Comments [facility] Today 06/08/2020 9:42 EDT COVID-19 TESTING Routine 06/08/2020 9:42 EDT documented in this encounter Results * COVID-19 TEST [facility] PCR (06/08/2020 9:42 EDT) Swab ENTIRE NASOPHARYNX / Unknown 06/08/2020 9:42 EDT 06/08/2020 15:57 EDT Provider Outr Resulting Lab MICROBIOLOGY - GENERAL ORDERABLES [facility] [address] [place] [address] * COVID-19 TESTING (06/08/2020 9:42 EDT) COVID-19 rt-PCR Result Negative Negative 06/09/2020 14:10 EDT [facility] Comment: This test has not been FDA cleared or approved. This test has been authorized by FDA under an EUA for use by authorized laboratories. This test has been authorized only for detection of nucleic acid from 2019-nCoV, not for any other viruses or pathogens. This test is only authorized for the duration of the declaration that circumstances exist justifying the authorization of emergency use of in vitro diagnostic tests for detection and/or diagnosis of 2019-nCoV under section 564(b)(1) of Act, 21 U.S.C ?? 360bbb-3(b) (1), unless the authorization is terminated or revoked sooner. Negative results do not preclude 2019-nCoV infection and should not be used as the sole basis for treatment or other patient management decisions. Negative results must be combined with clinical observations, patient history, and epidemiological information. Testing was performed using the ender SARS-CoV-2 assay ([employer] on the Ender 6800 System Performing Lab Ender [address] [facility] 06/09/2020 14:10 EDT [facility] Swab 06/08/2020 9:42 EDT 06/08/2020 15:57 EDT Provider Outr Resulting Lab MICROBIOLOGY - GENERAL ORDERABLES [facility] [address] [place] [address] documented in this encounter Visit Diagnoses Not on filedocumented in this encounter Care Teams Booking Manager Relationship Specialty Start Date End Date Diane Jon MD [address] [place], [place] [id number] PCP - General 07/31/13 documented as of this encounter
--- OUTSIDE RECORDS SUMMARY | 2023-11-03 00:27 | XMS_ITS | Encounter Summary ---
Author Organization [facility] Address [address] [place] [address] Care Team Providers Care Prevention Rn Name Role Phone Unavailable Primary Care Provider Unavailabl e Encounter Details Date Type Department Care Team (Latest Contact Info) Description 07/29/2013 10:00 EDT - 07/29/2013 23:59 EDT Hospital Encounter [address] [address] Unknown, Provider, Discharge Disposition: Home or Self Care Social History Tobacco Use Types Packs/Day Years Used Date Smoking Tobacco: Never Assessed Sex and Gender Information Value Date Recorded Sex Assigned at Not on file Gender Identity Not on file Sexual Orientation Not on file documented as of this encounter Discharge Disposition Disposition Code Departure Means Destination Home or Self Long Term documented in this encounter Plan of Treatment Not on file documented as of this encounter Visit Diagnoses Not on filedocumented in this encounter
--- OUTSIDE RECORDS SUMMARY | 2023-11-03 00:27 | XMS_ITS | Encounter Summary ---
[facility] [place] [address] Care Team Providers Care Supply Crib Attendant Name Role Phone VenuKayla quiles TYRA Primary Care Provider [phone] Reason for Visit * Reason Comments Skin Check Encounter Details Date Type Department Care Team (Late st Contact Info) Description 07/29/2019 10:30 AM EDT Office Visit Dermatology at [address] [place] [phone] Og Quiroz MD [address], [place] [address] History of basal cell carcinoma; Seborrheic keratosis; Nevus Social History Tobacco Use Types Packs/Day Years Used Date Smoking Tobacco: Former Smokeless Tobacco: Never Sex and Gender Information Value Date Recorded Sex Assigned at Not on file Gender Identity Not on file Sexual Orientation Not on file documented as of this encounter Progress Notes * Og Quiroz MD - 07/29/2019 10:30 AM EDT Problem: 1. New skin lesions of concern, annual skin check 2. 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 Previously seen by Dr. Marie for seborrheic keratoses Chichi follows up today concerned about some lesions on her forehead and scalp. It has been a yearsince I saw her last. Physical examination reveals a pleasant 78 woman who has a pearly nodule on the right posterior parietal scalp, a seborrheic keratosis within the right frontal hairline and with increased pigmentation at its superior margin, 2 seborrheic keratoses on her forehead, but a benign examination otherwiseof the head and the neck the chest the back the hands the arms forearms the thighs and the calves. S he has a number of seborrheic keratoses on her back and upper shoulders. There is no evidence of recurrent BCC on the right lower nasolabial fold. Assessment plan: Pearly nodule right posterior parietal scalp 1. Differential could include BCCA SCC, adnexal tumor versus pilar cyst 2. Today site was anesthetized and then removed with excisional biopsy. 3. Specimen was submitted for pathologic analysis. 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 4. Closure with two 4-0 Ethilon sutures to clinic in 1 week for suture removal and biopsy results. Seborrheic keratoses forehead 1. Could consider LN2 removal of these visible sites on her forehead. Seborrheic keratoses right upper frontal hairline 1. Patient reassured about benign seborrheic keratosis here as well as sites on back and upper chest. 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 No evidence of recurrence CC: Kayla Jalloh APRN documented in this encounter Plan of Treatment Upcoming Encounters Date Type Department Care Team (Late st Contact Info) Description 09/23/2024 1:30 PM EDT Office Visit Dermatology at [place] [address] [place] [phone] Og Quiroz MD [address] [facility], [place] [address] documented as of this encounter Visit Diagnoses Diagnosis History of basal cell carcinoma Personal history of other malignant neoplasm of skin Seborrheic keratosis Other seborrheic keratosis Nevus Benign neoplasm of skin, site unspecified documented in this encounter Care Teams Supply Crib Attendant Relationship Specialty Start Date End Date Kayla Jalloh APRN [address] [facility] [address] [place] [address] PCP - General Family Medicine 07/24/18 11/19/21 documented as of this encounter
--- OUTSIDE RECORDS SUMMARY | 2023-11-03 00:27 | XMS_ITS | Encounter Summary ---
Author Organization [facility] Address [address] [place] [address] Care Team Providers Care Aerospace Stress Engineer Name Role Phone Diane Jon MD Primary Care Provider Encounter Details Date Type Department Care Team (Late st Contact Info) Description 06/29/2020 Lab Requisition [facility] Pathology & Laboratory Medicine - [facility] [address] [place] [address] Claudio Zavala MD [address] [place] [address] [place], [place] [id number] Encounter for screening for malignant neoplasm of colon Social History Tobacco Use Types Packs/Day Years Used Date Smoking Tobacco: Never Assessed Sex and Gender Information Value Date Recorded Sex Assigned at Not on file Gender Identity Not on file Sexual Orientation Not on file documented as of this encounter Plan of Treatment Not on file documented as of this encounter Procedures Procedure Name Priority Date/Time Associated Diagnosis Comments SURGICAL PATHOLOGY Today 06/29/2020 8:15 EDT Encounter for screening for malignant neoplasm of colon documented in this encounter Results * SURGICAL PATHOLOGY (06/29/2020 8:15 EDT) Final Diagnosis A. COLON, ASCENDING, POLYP, BIOPSY: - Benign colonic mucosal fold B. COLON, TRANSVERSE, POLYP, BIOPSY: - Sessile serrated adenoma C. COLON, SIGMOID, POLYP, BIOPSY: - Benign colonic mucosal fold D. COLON, SIGMOID, POLYP AT 20 CM, POLYPECTOMY: - Tubulovillous adenoma E. RECTUM, POLYPS X2, BIOPSIES: - Hyperplastic polyp and benign colonic mucosal fold 07/01/2020 17:06 [facility] Attestation By the signature below, the attending physician certifies that they have 1) personally conducted a gross and/or microscopic examination of the described specimen(s), and/or personally interpreted the results of laboratory testing of the described specimen(s), and 2) personally rendered or confirmed the above diagnosis. 07/01/2020 17:06 [facility] at 1706 Clinical History Colonoscopy screening 07/01/2020 17:06 [facility] Gross Description A. Received in formalin labelled with proper patient identification (initials L, S) and ascending colon polyp is a sellers tissue (0.6 x 0.4 x 0.1 cm). Submitted intact in A1. B. Received in formalin labelled with proper patient identification (initials L, S) and transverse colon polyp are two pale-sellers tissues (0.3 x 0.2 x 0.1 cm and 0.3 x 0.2 x 0.1 cm). Entirely submitted in B1. C. Received in formalin labelled with proper patient identification (initials L, S) and sigmoid polyp is a sellers tissue (0.5 x 0.4 x 0.2 cm). Submitted intact in C1. D. Received in formalin labelled with proper patient identification (initials L, S) and sigmoid polyp 20 cm is a white to brown lobular polypoid tissue (0.4 x 1.3 x 0.9 cm). Serially sectioned and entirely submitted in D1-D3. E. Received in formalin labelled with proper patient identification (initials L, asked) and rectal polyps x2 are two pale-sellers focally brown speckled tissues (0.5 x 0.2 x 0.1 cm and 0.4 x 0.3 x 0.2 cm). Entirely submitted in E1. Terence Alarcon 06/30/2020 7:49 07/01/2020 17:06 [facility] Performing Lab [facility] 07/01/2020 17:06 [facility] Scanned Images 07/01/2020 17:06 [facility] Tissue SPECIMEN FROM RECTUM / Unknown 06/29/2020 8:15 EDT 06/29/2020 17:56 EDT Tissue specimen (specimen) TRANSVERSE COLON STRUCTURE / Unknown 06/29/2020 8:15 EDT 06/29/2020 17:56 EDT Tissue specimen (specimen) SIGMOID COLON STRUCTURE / Unknown 06/29/2020 8:15 EDT 06/29/2020 17:56 EDT Tissue specimen (specimen) SIGMOID COLON STRUCTURE / Unknown 06/29/2020 8:15 EDT 06/29/2020 17:56 EDT Tissue specimen (specimen) SPECIMEN FROM RECTUM / Unknown 06/29/2020 8:15 EDT 06/29/2020 17:56 EDT Claudio Zavala MD PATHOLOGY ORDERA [facility] Organization Address City/State/ZIP Co de Phone Number [facility] [address] [place] [address] documented in this encounter Visit Diagnoses Diagnosis Encounter for screening for malignant neoplasm of colon Special screening for malignant neoplasms, colon documented in this encounter Care Teams Aerospace Stress Engineer Relationship Specialty Start Date End Date Diane Jon MD [address] [place] [address] PCP - General 07/31/13 documented as of this encounter
--- OUTSIDE RECORDS SUMMARY | 2023-11-03 00:27 | XMS_ITS | Encounter Summary ---
Author Organization [facility] [place] [address] Care Team Providers Care Repeater Operator Name Role Phone Tom Robertson DNP Primary Care Provider [phone] Reason for Visit * Reason Comments Annual Exam Encounter Details Date Type Department Care Team (Late st Contact Info) Description 09/13/2022 1:30 PM EDT Office Visit Dermatology at [address] [place] [phone] Og Quiroz MD [address] [place] [address] History of SCC (squamous cell carcinoma) of skin; Seborrheic keratosis Social History Tobacco Use Types Packs/Day Years Used Date Smoking Tobacco: Former Smokeless Tobacco: Never Sex and Gender Information Value Date Recorded Sex Assigned at Not on file Gender Identity Not on file Sexual Orientation Not on file documented as of this encounter Progress Notes * Og Quiroz MD - 09/13/2022 1:30 PM EDT Problem: 1. Annual skin checkup 2. 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 Previously seen by Dr. Marie for seborrheic keratoses 4. 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 She has not noted any new lesions or concerns sinceher last visit. Physical examination shows good healing of the April 2022 SCCA treatment site on her central upper forehead. She has an irritated seborrheic keratosis on her upper right back. She has a small seborrheic keratosis in the mid right nasolabial fold. Examination of the face the upper chest hands arms and forearms is otherwise benign. Assessment plan: Benign skin examination 1. Patient reassured about today's benign skin examination 2. Recommend that I see her again in another year for repeat check. Seborrheic keratoses of upper back right mid nasolabial fold 1. Could consider LN2 for removal of these. CC: Tom Robertson documented in this encounter Plan of Treatment Upcoming Encounters Date Type Department Care Team (Late st Contact Info) Description 09/23/2024 1:30 PM EDT Office Visit Dermatology at [place] [address] [place] [phone] Og Quiroz MD [address] [facility], [place] [address] documented as of this encounter Visit Diagnoses Diagnosis History of SCC (squamous cell carcinoma) of skin Personal history of other malignant neoplasm of skin Seborrheic keratosis Other seborrheic keratosis documented in this encounter Care Teams Repeater Operator Relationship Specialty Start Date End Date Tom Robertson DNP [address] [place] [id number] PCP - General Family Medicine 09/13/22 documented as of this encounter
--- OUTSIDE RECORDS SUMMARY | 2023-11-03 00:27 | XMS_ITS | Encounter Summary ---
Author Organization [facility] Address [address] [place] [address] Care Team Providers Care Hydrator Name Role Phone Unavailable Primary Care Provider Unavailabl e Encounter Details Date Type Department Care Team (Latest Contact Info) Description 10/04/2004 9:29 EDT - 10/04/2004 11:59 EDT Hospital Encounter [facility] [address] [place] [address] Glenn Domínguez MD [address] [place] [phone] Discharge Disposition: Auto Discharge Social History Tobacco Use Types Packs/Day Years Used Date Smoking Tobacco: Never Assessed Sex and Gender Information Value Date Recorded Sex Assigned at Not on file Gender Identity Not on file Sexual Orientation Not on file documented as of this encounter Discharge Disposition Disposition Code Departure Means Destination Auto Discharge documented in this encounter Plan of Treatment Not on file documented as of this encounter Procedures Procedure Name Priority Date/Time Associated Diagnosis Comments MR LOWER EXT JOINT WO CONTRAST 10/04/2004 10:31 EDT documented in this encounter Results * MR LOWER EXT JOINT WO CONTRAST (10/04/2004 10:31 EDT) Anatomical Region Laterality Modality Other 10/04/2004 10:3 1 EDT Narrative 10/02/2008 4:25 EDT RIGHT KNEE PAIN, S/P LATERAL MENISCECTOMY MRI OF THE RIGHT KNEE WITHOUT CONTRAST CLINICAL HISTORY: Right knee pain status post lateral meniscectomy. ??Rule out recurrent medial or lateral tear. TECHNIQUE: Multiplanar images of the right knee were obtained using the routine sequences. ??No contrast was given. FINDINGS: The patient has a history of a prior lateral meniscectomy which was partial with shortening of the midbody of the lateral meniscus. There is a horizontal high signal abnormality involving the posterior horn of the lateral meniscus that communicates with the undersurface of the meniscus. ??This has a very bright signal on T2-weighted sequences, consistent with a recurrent tear. ??In the anterior horn, there is also a 2-mm intrameniscal cyst which communicates with the undersurface of the meniscus, also consistent with a recurrent tear of the anterior horn. There is also a significant horizontal signal abnormality involving the posterior horn of the medial meniscus that communicates with the undersurface indicating a tear. ??The midbody and anterior horn of the medial meniscus are normal. The ACL, PCL, MCL, and LCL are normal. There is mild irregularity of the surface of the cartilage in the anterior aspect of the medial femoral condyle and in the midportion of the lateral femoral condyle. ??There is also a moderate thinning of the patellar cartilage medially. ??There is a small joint effusion. CONCLUSIONS: Postsurgical changes to the midbody of the lateral meniscus. Evidence of a recurrent tear of the posterior horn and anterior horn of the lateral meniscus. Horizontal tear in the posterior horn of the medial meniscus. Small joint effusion. 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 /tns Procedure Note Doris Espinoza MD - 10/02/2008 RIGHT KNEE PAIN, S/P LATERAL MENISCECTOMY MRI OF THE RIGHT KNEE WITHOUT CONTRAST CLINICAL HISTORY: Right knee pain status post lateral meniscectomy. Rule out recurrent medial or lateral tear. TECHNIQUE: Multiplanar images of the right knee were obtained using the routine sequences. No contrast was given. FINDINGS: The patient has a history of a prior lateral meniscectomy which was partial with shortening of the midbody of the lateral meniscus. There is a horizontal high signal abnormality involving the posterior horn of the lateral meniscus that communicates with the undersurface of the meniscus. This has a very bright signal on T2-weighted sequences, consistent with a recurrent tear. In the anterior horn, there is also a 2-mm intrameniscal cyst which communicates with the undersurface of the meniscus, also consistent with a recurrent tear of the anterior horn. There is also a significant horizontal signal abnormality involving the posterior horn of the medial meniscus that communicates with the undersurface indicating a tear. The midbody and anterior horn of the medial meniscus are normal. The ACL, PCL, MCL, and LCL are normal. There is mild irregularity of the surface of the cartilage in the anterior aspect of the medial femoral condyle and in the midportion of the lateral femoral condyle. There is also a moderate thinning of the patellar cartilage medially. There is a small joint effusion. CONCLUSIONS: Postsurgical changes to the midbody of the lateral meniscus. Evidence of a recurrent tear of the posterior horn and anterior horn of the lateral meniscus. Horizontal tear in the posterior horn of the medial meniscus. Small joint effusion. 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 /sadi Glenn Domínguez MD IMG MRI ORDER AIDAN documented in this encounter Visit Diagnoses Not on filedocumented in this encounter
--- OUTSIDE RECORDS SUMMARY | 2023-11-03 00:27 | XMS_ITS | Clinical Summary ---
Author Organization [facility] Address [facility] [place] [address] Care Team Providers Care First Grade Teacher Name Role Phone Tom Robertson DNP Primary Care Provider Allergies Active Allergy Reactions Criticality Noted Date Comments Amoxicillin Other (See Comments) Low 07/06/2020 Medications Medication Sig Dispensed Refills Start Date End Date Status ibuprofen (ADVIL;MOTRIN) 800 mg tablet 01/07/2005 Active albuterol (PROVENTIL HFA;VENTOLIN HFA) 90 mcg/Actuation inhaler 05/01/2006 Act steve hydrochlorothiazide (HYDRODIURIL) 25 mg Tablet 05/19/2015 Active Diovan HCT 160-25 mg Tablet 07/12/2019 Active aspirin 325 mg Tablet Take by mouth. 06/25/2020 Active chlorhexidine (PERIDEX) 0.12 % Mouthwash SWISH 15ML IN MOUTH AND SPIT OUT DAILY 07/06/2020 Active clobetasoL (TEMOVATE) 0.05 % Cream Apply topically. 06/06/2016 Active ipratropium-albuteroL (DUONEB) 0.5 mg-3 mg(2.5 mg base)/3 mL Solution for Nebulization Inhale into the lungs. 07/06/2020 Active lisinopriL (Prinivil;Zestril) 20 mg Tablet 07/11/2020 Active meclizine (Antivert) 25 mg Tablet 05/15/2020 Active levothyroxine (Synthroid) 50 mcg Tablet 07/17/2020 Active potassium chloride ER (K-Dur/Klor-Con) 20 mEq Tab Sust.Rel. Particle/Crystal 07/17/2020 Active Advair Diskus 250-50 mcg/dose Disk with Device 07/12/2021 Active doxycycline (Vibramycin) 100 mg capsule TAKE 1 CAPSULE BY MOUTH EVERY 12 HOURS FOR 7 DAYS. AVOID SUN EXPOSURE. TAKE WITH A MEAL. 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 Seborrheic keratosis, inflamed 06/15/2015 Basal cell carcinoma 06/15/2015 Keratosis 11/27/2014 Vertigo 11/27/2014 Hyperplastic polyp of large intestine 07/29/2013 Essential hypertension 12/07/2012 Encounters Date Type Department Care Team Description 09/21/2023 1:30 PM EDT Office Visit Dermatology at [address] [place] [phone] Og Quiroz MD History of SCC (squamous cell carcinoma) of skin; Seborrheic keratosis; History of basal cell carcinoma 09/21/2023 Travel from Last 3 Months Social History Tobacco Use Types Packs/Day Years Used Date Smoking Tobacco: Former Smokeless Tobacco: Never Sex and Gender Information Value Date Recorded Sex Assigned at Not on file Gender Identity Not on file Sexual Orientation Not on file Plan of Treatment Upcoming Encounters Date Type Department Care Team (Late st Contact Info) Description 09/23/2024 1:30 PM EDT Office Visit Dermatology at [address] [place] [address] Og Quiroz MD [address] [facility], [facility] A D[place]MATOLOGY [place], [place] [id number] Health Maintenance Due Date Last Done Comments Pneumoccocal Vaccine: 65+ (1 of 2 - PCV) 1948 Hepatitis C Screening 1960 Tdap adult 1961 Tetanus vaccine 1961 Zoster vaccine (1 of 2) 1992 Advance Directive 1997 Bone Density Scan 12/14/2007 Covid-19 Vaccine ( season) 2023 Influenza (Flu) vaccine (1 o f 1 - Influenza standard series) 10/29/2023 Care Teams First Grade Teacher Relationship Specialty Start Date End Date Tom Robertson DNP [address] [place] [address] PCP - General Family Medicine 09/13/22
--- OUTSIDE RECORDS SUMMARY | 2023-11-03 00:27 | XMS_ITS | Encounter Summary ---
Author Organization [facility] [place] [address] [place] [address] Care Team Providers Care Closing Manager Name Role Phone Unknown Primary Care Provider Unavailabl e Reason for Visit * Reason Comments Follow-up Encounter Details Date Type Department Care Team (Late st Contact Info) Description 05/24/2022 8:00 AM EDT Office Visit Dermatology at [address] [phone] Og Quiroz MD [address] [facility] [place] [address] History of basal cell carcinoma Social History Tobacco Use Types Packs/Day Years Used Date Smoking Tobacco: Former Smokeless Tobacco: Never Sex and Gender Information Value Date Recorded Sex Assigned at Not on file Gender Identity Not on file Sexual Orientation Not on file documented as of this encounter Progress Notes * Og Quiroz MD - 05/24/2022 8:00 AM EDT Problem: 1.?New lesion of concern, central upper forehead 2. 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 ??Previously seen by Dr. Marie for seborrheic keratoses Chichi follows up concerned about a lesion on her central forehead which has not healed for last 3months. Physical examination reveals a crusting scabbing papule concerning for an SCCA. Assessment and plan: SCC, versus BCCA, central upper forehead 1. After obtaining informed consent, the site was anesthetized and removed with shave C&D x3. 2. After curettage site measured 8 mm in diameter 3. Wound care instructions and supplies given 4. Return to clinic in August for her regular scheduled yearly check. CC: Tom Robertson APRN documented in this encounter Plan of Treatment Upcoming Encounters Date Type Department Care Team (Late st Contact Info) Description 09/23/2024 1:30 PM EDT Office Visit Dermatology at [place] [address] [facility] [place] [phone] Og Quiroz MD [address] [facility] [address], [place] [address] documented as of this encounter Visit Diagnoses Diagnosis History of basal cell carcinoma Personal history of other malignant neoplasm of skin documented in this encounter Care Teams Closing Manager Relationship Specialty Start Date End Date Unknown None PCP - General 11/20/21 09/12/22 documented as of this encounter
--- OUTSIDE RECORDS SUMMARY | 2023-11-03 00:27 | XMS_ITS | Encounter Summary ---
Author Organization [facility] Address [address] [place] [address] Care Team Providers Care Assistant Manager Of Operations Name Role Phone Unavailable Primary Care Provider Unavailabl e Encounter Details Date Type Department Care Team (Latest Contact Info) Description 03/08/2005 6:28 EST - 03/08/2005 11:59 EST Hospital Encounter [facility] Perioperative Services - [address] [address] Glenn Domínguez MD [address] [place] [address] Discharge Disposition: Home or Self Care Social History Tobacco Use Types Packs/Day Years Used Date Smoking Tobacco: Never Assessed Sex and Gender Information Value Date Recorded Sex Assigned at Not on file Gender Identity Not on file Sexual Orientation Not on file documented as of this encounter Discharge Disposition Disposition Code Departure Means Destination Home or Self Care documented in this encounter OR Notes * OR Surgeon - Glenn Domínguez MD - 03/08/2005 0000 EST PROCEDURE REPORT PT TYPE: OPPROC PT LOC: [id number] SERVICE DATE: 03/08/2005 SURGEON: Siddharth Domínguez, Makayla Villalpando MD BUFFING AND SUEDING MACHINE OPERATOR: PREOPERATIVE DIAGNOSIS: Right knee lateral meniscus tear. POSTOPERATIVE DIAGNOSIS: 1. Right knee complex lateral meniscus tear. 2. Right knee flap tear, medial meniscus. PROCEDURE: Right knee arthroscopic partial medial and lateral (both) meniscectomy. ANESTHESIA: General with endotracheal tube. INDICATIONS: This 64-year-old female presented with severe right knee pain, with some question about the etiology of this from a [place] She was unresponsive to conservative treatment for this. FINDINGS: 1. Large complex lateral meniscus tear interrupting the popliteus hiatus, creating a large pedunculated flap, which would engage in the knee joint. 2. Right knee flap tear, posterior third medial meniscus. 3. Scattered grade 2 changes of the patellofemoral joint. NARRATIVE: After satisfactory general anesthesia was induced, perioperative Kefzol antibiotics weregiven. The patients right knee was examined, showing the patient to have full extension, full flexion, and normal stability, without any evidence of gross crepitus within the knee joint itself. Following this, the knee was prepped and draped in a standard fashion using Betadine scrub and Betadine solution. The usual sterile drapes for this procedure were employed. The leg was identified as the appropriate operative site by all of those in the room via the yusuf moment. The standard inferomedial and inferolateralportals were made and the knee was infiltrated with lactated Ringers. Attention was first turned to the region of the intercondylar notch area, where the ACL and PCL were first identified and found to be fully free of any tears or laxity. Attention was then turned to the region of the medial compartment, which showed fairly pristine medial femoral condyle and tibial plateau surfaces. There was a complex flap tear of the medial meniscus, which was resected using the upbiting forceps and taken down to a good stable rim using the intraarticular Dyonics shaver. Following this, attention was turned to the region of the lateral compartment, which showed the patient to have a large complex meniscus tear violating the popliteus hiatus, creating a large pedunculated stump of the meniscus, which would engage in the joint with flexion and extension. There was a slightly subtotal meniscectomy done of this lateral meniscus in the region of the popliteus hiatus, but the posterior horn was preserved as well as the anterior horn. Only scattered grade 1 changes ofthe articular surface of the medial femoral condyle and tibial plateau were noted. Attention was then turned to the region of the patellofemoral joint, which showed normal tracking of the patella and normal articulation,except for some minor grade 1-2 changes along the medial patella facet and the femoral trochlear groove. No pathologic plicae synovialis changes were noted and nosignificant synovitis changes were noted. After satisfactory completion of the knee surgery, excess lactated Ringers was withdrawn. 0.25% Marcaine with epinephrine was infiltrated in the knee proper itself. Then 40 mg of Depo-Medrol was alsoinfiltrated. A single suture of 4-0 nylon was used to close these two wounds, over which was placedAdaptic and 4 x 4s, held in place by circumferentially wrapped Webril a loose Reji bandage. The tourniquet was deflated and a Dura-Kold ice sleeve was loosely placed across the leg. The patient was returned to the recovery room in satisfactory condition. In the recovery room, we spent sometime discussing with the patient the pathology encountered and the expectations for pain control and antiembolism prophylaxis. COMPLICATIONS: None. SPONGE AND NEEDLE: Correct x2. DRAINS: None. ESTIMATED BLOOD LOSS: Minimal. TOURNIQUET TIME: 27 minutes about the right upper thigh at 275 mmHg. SPECIMENS: None. Signed by Glenn Domínguez MD 04/05/2005 15:38 Makayla Dhillon MD Glenn Domínguez MD - Glenn Domínguez MD Omer - oniel Job ID: [id number] Document ID: [id number] cc: Glenn Domínguez MD documented in this encounter Plan of Treatment Not on file documented as of this encounter Visit Diagnoses Not on filedocumented in this encounter
--- OUTSIDE RECORDS SUMMARY | 2023-11-03 00:27 | XMS_ITS | Encounter Summary ---
Author Organization [facility] [place] [address] Care Team Providers Care Air/Ocean Export Clerk Name Role Phone VenuKayla quiles TYRA Primary Care Provider [phone] Encounter Details Date Type Department Care Team (Late st Contact Info) Description 08/01/2019 Telephone Dermatology at [address] [address] Chichi Sotelo LPN Social History Tobacco Use Types Packs/Day Years Used Date Smoking Tobacco: Former Smokeless Tobacco: Never Sex and Gender Information Value Date Recorded Sex Assigned at Not on file Gender Identity Not on file Sexual Orientation Not on file documented as of this encounter Miscellaneous Notes * Telephone Encounter - Chichi Sotelo LPN - 08/01/2019 9:09 AM EDT 07/29/2019 right posterior parietal scalp, shave biopsy Dx: Benign cyst, no further treatment necessary, return to clinic on 08/05/2019. Reviewed biopsy results and Dr. Forman recommendation with patient. Voiced understanding. documented in this encounter Plan of Treatment Upcoming Encounters Date Type Department Care Team (Late st Contact Info) Description 09/23/2024 1:30 PM EDT Office Visit Dermatology at [address] [phone] Og Quiroz MD [address] [facility], [facility] A DERMATOLOGY [place], [place] [phone] documented as of this encounter Visit Diagnoses Not on filedocumented in this encounter Care Teams Air/Ocean Export Clerk Relationship Specialty Start Date End Date Kayla Jalloh, PRODUCT SALES REPRESENTATIVE [address] [place] [address] PCP - General Family Medicine 07/24/18 11/19/21 documented as of this encounter
--- OUTSIDE RECORDS SUMMARY | 2023-11-03 00:27 | XMS_ITS | Encounter Summary ---
Author Organization [facility] [place] [address] Care Team Providers Care Budget Analyst Name Role Phone VenuKayla quiles TYRA Primary Care Provider [phone] Reason for Visit * Reason Comments Annual Exam Encounter Details Date Type Department Care Team (Late st Contact Info) Description 09/07/2021 2:00 PM EDT Office Visit Dermatology at [address] [place] [phone] Og Quiroz MD [address] [facility] [address], [place] [address] History of basal cell carcinoma; Seborrheic keratosis; Nevus Social History Tobacco Use Types Packs/Day Years Used Date Smoking Tobacco: Former Smokeless Tobacco: Never Sex and Gender Information Value Date Recorded Sex Assigned at Not on file Gender Identity Not on file Sexual Orientation Not on file documented as of this encounter Progress Notes * Og Quiroz MD - 09/07/2021 2:00 PM EDT Problem: 1.?? Repeat skin checkup 2. 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 ??Previously seen by Dr. Marie for seborrheic keratoses Chichi follows up and is now 80. She is here for a 1 year skin checkup. She has noted no particular lesions of concern. Physical examination reveals a pleasant 80-year-old woman who has a seborrheic keratosis on the right frontal parietal scalp within the hairline which is developing a more palpable hyperkeratotic center. She has a papule of sebaceous hyperplasia on the right mid nasolabial fold. There is no evidence of any new or recurrent BCCA. Examination of the head and neck the chest the back the hands on forearms thighs and calves is otherwise benign. Assessment plan: Benign skin examination 1. Patient reassured about her benign skin examination 2. Recommend she continue sun avoidance cautions 3. Return to clinic in a year for repeat check. History of BCCA bilateral nasolabial fold 1. Evidence of recurrence. CC: Kayla Jalloh APRN documented in this encounter Plan of Treatment Upcoming Encounters Date Type Department Care Team (Late st Contact Info) Description 09/23/2024 1:30 PM EDT Office Visit Dermatology at [place] [address] [place] [address] Og Quiroz MD [address] [facility], RIG[facility] A DERMATOLOGY [place], [place] [phone] documented as of this encounter Visit Diagnoses Diagnosis History of basal cell carcinoma Personal history of other malignant neoplasm of skin Seborrheic keratosis Other seborrheic keratosis Nevus Benign neoplasm of skin, site unspecified documented in this encounter Care Teams Budget Analyst Relationship Specialty Start Date End Date Kayla Jalloh APRN [address] [facility] [address] [place] [address] PCP - General Family Medicine 07/24/18 11/19/21 documented as of this encounter
--- OUTSIDE RECORDS SUMMARY | 2023-11-03 00:27 | XMS_ITS | Encounter Summary ---
[place] [address] Care Team Providers Care Buildings Painter Name Role Phone VenuKayla quiles TYRA Primary Care Provider [phone] Encounter Details Date Type Department Care Team (Late st Contact Info) Description 07/24/2018 8:45 AM EDT Office Visit Dermatology at [address] [place] [address] Og Quiroz MD [address] [facility] [place] [address] History of basal cell carcinoma; Seborrheic keratosis; Nevus Social History Tobacco Use Types Packs/Day Years Used Date Smoking Tobacco: Former Smokeless Tobacco: Never Sex and Gender Information Value Date Recorded Sex Assigned at Not on file Gender Identity Not on file Sexual Orientation Not on file documented as of this encounter Progress Notes * Og Quiroz MD - 07/24/2018 8:45 AM EDT New skin lesions of concern 2. 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 Previously seen by Dr. Marie for seborrheic keratoses Chichi follows up and has been doing well. She has a lesion on the left lower eyelid and one on the right lateral thigh. Physical examination reveals a pleasant 77-year-old woman who has a verrucous papule 6 mm in diameter consistent with a verruca vulgaris on the right lateral thigh. She has an early seborrheic keratoses perhaps 3 mm in length ovoid on the left lower eyelid that aligns itself in the skin tension line of the lower eyelid. Otherwise examination of the face the neck the chest the back the hands the arms forearms is benign. There is no evidence of recurrent BCCA on the right lower nasolabial fold. She does have a pilar cyst about a centimeter diameter on the right posterior parietal scalp which isasymptomatic and does not bother her. Assessment plan: Verruca vulgaris, right lateral thigh 1. Because of the filiform elevated nature of this, is often rubbed and irritated by Pat's and clothing 2. Today site was anesthetized and removed shave biopsy 3. Specimen not submitted pathologic analysis. Early seborrheic keratosis left lower eyelid 1. Patient reassured that this is not represent BCCA. 2. Today site was anesthetized and left desiccated. 3. 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 No evidence of recurrence 2. Patient reassured Pilar cyst right posterior parietal scalp 1. Patient reassured no treatment necessary CC: Kayla Jalloh APRN documented in this encounter Plan of Treatment Upcoming Encounters Date Type Department Care Team (Late st Contact Info) Description 09/23/2024 1:30 PM EDT Office Visit Dermatology at [place] [address] [facility] [place] [address] Og Quiroz MD [address] [facility], [place] [address] documented as of this encounter Visit Diagnoses Diagnosis History of basal cell carcinoma Personal history of other malignant neoplasm of skin Seborrheic keratosis Other seborrheic keratosis Nevus Benign neoplasm of skin, site unspecified documented in this encounter Care Teams Buildings Painter Relationship Specialty Start Date End Date Kayla Jalloh APRN [address] [facility] [address] [place] [address] PCP - General Family Medicine 07/24/18 11/19/21 documented as of this encounter
--- OUTSIDE RECORDS SUMMARY | 2023-11-03 00:27 | XMS_ITS | Encounter Summary ---
Author Organization [facility] [place] [address] Care Team Providers Care Spring Encaser Name Role Phone VenuKayla quiles TYRA Primary Care Provider [phone] Reason for Visit * Reason Comments Follow-up Encounter Details Date Type Department Care Team (Late st Contact Info) Description 08/06/2020 11:00 AM EDT Office Visit Dermatology at [address] [place] [phone] Og Quiroz MD [address], [place] [address] History of basal cell carcinoma; Seborrheic keratosis; Nevus Social History Tobacco Use Types Packs/Day Years Used Date Smoking Tobacco: Former Smokeless Tobacco: Never Sex and Gender Information Value Date Recorded Sex Assigned at Not on file Gender Identity Not on file Sexual Orientation Not on file documented as of this encounter Progress Notes * Og Quiroz MD - 08/06/2020 11:00 AM EDT Problem: 1.?? Repeat skin checkup 2. 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 ??Previously seen by Dr. Marie for seborrheic keratoses Chichi follows up for repeat check. Is been a year since her last. She has a lesion on the left upper lateral breast that she would like to have removed is often rubbed and irritated. She is 1 evaluation of the left lateral calf. Physical examination reveals a pleasant 79-year-old who has a benign examination of the head and the neck the chest the back the hands the arms of forearms the thighs and the calves. She has a an enlarging hyperkeratotic growth on the left upper lateral breast which appears to be consistent with a seborrheic keratosis. She has numerous seborrheic keratoses and much much smaller size located on her back and flanks. This lesion and measures 1 x 2 cm on the left upper lateral breast. She has also a hyperkeratotic papule on the left lateral calf which appears to be an irritated inflamed seborrheic keratosis rule out possible SCCA versus BCCA. Assessment plan: Possible seborrheic keratoses, irritated, site A left upper lateral breast, site B left lateral calf 1. After obtaining informed consent, both sites were anesthetized and removed with shave biopsy with light electrodesiccation performed. 2. Triple antibiotic ointment and bandage placed 3. Wound care instructions and supplies given History of BCCA right lower nasolabial fold 1. No evidence of recurrence Pilar cysts excised from right posterior parietal scalp July 2019 1. Well-healed 2. No evidence of recurrent cyst. CC: Kayla Jalloh APRN documented in this encounter Plan of Treatment Upcoming Encounters Date Type Department Care Team (Late st Contact Info) Description 09/23/2024 1:30 PM EDT Office Visit Dermatology at [place] [address] [facility] [place] [phone] Og Quiroz MD [address] [facility], [place] [address] documented as of this encounter Visit Diagnoses Diagnosis History of basal cell carcinoma Personal history of other malignant neoplasm of skin Seborrheic keratosis Other seborrheic keratosis Nevus Benign neoplasm of skin, site unspecified documented in this encounter Care Teams Spring Encaser Relationship Specialty Start Date End Date Kayla Jalloh APRN [address] [facility] [address] [place] [address] PCP - General Family Medicine 07/24/18 11/19/21 documented as of this encounter
--- OUTSIDE RECORDS SUMMARY | 2023-11-03 00:27 | XMS_ITS | Encounter Summary ---
Author Organization [facility] Address [address] [place] [address] Care Team Providers Care Verify Rep Name Role Phone Unavailable Primary Care Provider Unavailabl e Encounter Details Date Type Department Care Team (Late st Contact Info) Description 12/07/2009 Results Only [facility] Services - [facility] [place] [place] [address] [place], [place] [address] Diane Jon MD [address] [place] [address] Social History Tobacco Use Types Packs/Day Years Used Date Smoking Tobacco: Never Assessed Sex and Gender Information Value Date Recorded Sex Assigned at Not on file Gender Identity Not on file Sexual Orientation Not on file documented as of this encounter Plan of Treatment Not on file documented as of this encounter Procedures Procedure Name Priority Date/Time Associated Diagnosis Comments CYTOPATHOLOGY Routine 12/07/2009 0:00 EDT documented in this encounter Results * CYTOPATHOLOGY (12/07/2009 0:00 EDT) Pathology Report: CYTOPATHOLOGY REPORT ? Reports generated via electronic interface contain original data; ? however they are lacking the format of the original report. ? Caution should be taken when reading/interpreti ng unformatted reports. ? Name: ? CHICHI LOOMIS ? Accession #: ? [id number] ? : ? 1940 (Age: 68) ??F ?Collect Date: ? 12/07/2009 ? Location: ? [facility] ? Receive Date: ? 12/08/2009 ? Provider: DIANE GRESSER MD ? Copy to: ? Final Report ? SPECIMEN ADEQUACY ? Satisfactory for Evaluation ? - transformation zone component present ? GENERAL CATEGORIZATION ? Negative for Intraepithelial Lesion or Malignancy ? Menstural/Pregnanc y Status: ??Post Menopausal ? Other: HPVDX - HPV testing requested regardless of diagnosis on current ThinPrep Pap test. ? Specimen/Source: ??Pap Test, Cervix/Endocervix, ThinPrep Imaging System with ? manual evaluation ? Document reviewed and electronically signed by: ? ALONSO Rodrigues(ASCP) ? Report ??Date: 12/11/2009 14:42 ? HPV with Pap Test ? Date Ordered: ? 12/11/2009 ? Status: ?? Signed Out ?Date Complete: ? 12/16/2009 ? By: ??System Interface ? Date Reported: ? 12/16/2009 ? Interpretation ? RESULT: Negative for HPV types 16, 18, 31, 33, 35, 39, 45, 51, 52, ? 56, 58, 59, and 68. ? Comments ? Document reviewed and electronically signed by: ? System Interface ? Report date: 12/16/2009 ? By the signature above, the attending physician certifies that he/she has ? personally conducted a gross and/or microscopic examination of the described ? specimens and rendered or confirmed the above diagnosis. ? End of Report ? ROCCO SANCHEZ 12/07/2009 12/08/2009 Diane Jon MD PATHOLOGY ORDERABLES ROCCO SANCHEZ [address] [place] [address] documented in this encounter Visit Diagnoses Not on filedocumented in this encounter
--- OUTSIDE RECORDS SUMMARY | 2023-11-03 00:27 | XMS_ITS | Encounter Summary ---
Author Organization [facility] Address [facility] [place] [address] Care Team Providers Care Maritime Guard Name Role Phone VenuKayla quiles TYRA Primary Care Provider Encounter Details Date Type Department Care Team (Latest Contact Info) Description 07/29/2019 9:47 PM EDT - 07/29/2019 11:59 PM EDT Hospital [place] [phone] Discharge Disposition: Home Social History Tobacco Use Types Packs/Day Years Used Date Smoking Tobacco: Former Smokeless Tobacco: Never Sex and Gender Information Value Date Recorded Sex Assigned at Not on file Gender Identity Not on file Sexual Orientation Not on file documented as of this encounter Medications at Time of Discharge Medication Sig Dispensed Refills Start Date End Date clobetasoL (TEMOVATE) 0.05 % Cream Apply topically. 06/06/2016 Diovan HCT 160-25 mg Tablet 07/12/2019 hydrochlorothiazide (HYDRODIURIL) 25 mg Tablet 05/19/2015 albuterol (PROVENTIL HFA;VENTOLIN HFA) 90 mcg/Actuation inhaler 05/01/2006 ibuprofen (ADVIL;MOTRIN) 800 mg tablet 01/07/2005 potassium chloride (MICRO-K) 10 mEq Capsule, Sustained Release 05/19/2015 08/06/2020 LEVOTHYROXINE SODIUM (SYNTHROID ORAL) 01/07/2005 08/06/2020 documented as of this encounter Plan of Treatment Upcoming Encounters Date Type Department Care Team (Late st Contact Info) Description 09/23/2024 1:30 PM EDT Office Visit Dermatology at [place] [address] [facility] [place] [phone] Og Quiroz MD [address], [place] [address] documented as of this encounter Procedures Procedure Name Priority Date/Time Associated Diagnosis Comments SURGICAL PATHOLOGY REPORT Routine 07/29/2019 11:19 AM EDT documented in this encounter Results * Surgical Pathology Report (07/29/2019 11:19 AM EDT) Final Diagnosis [id number] ? Location: [facility] The signing pathologist has (i) examined the relevant preparation(s) for the specimen(s) and (ii) rendered or confirmed the diagnosis(es). . ?Surgical Pathology DIAGNOSIS A. R posterior parietal scalp, shave biopsy: - ??Consistent with fragments of p ilar cyst with focal proliferative features, transected ??(see discussion) Electronically signed by: ??Adriana PARK, Kathy Verified: ??07/31/2019 ?Dermatopatholog ist Performed at: ??-[facility] Dept. of Pathology, [place], [place] DISCUSSION There is focal thickening of the cyst wall with a multilobulated pattern although this could partly be related to tangential sectioning. At least close clinical follow up should be considered with complete removal of any residual or recurrent lesion. SPECIMEN(S) SUBMITTED A - R posterior parietal scalp, shave (1) CLINICAL INFORMATION Growing pearly nodule x months. Rule out BCC/SCC, adnexal tumor, pilar cyst Referring Identifier: ?(not provided) SPECIMEN PROCESSING A - Labeled/Fixative: Right posterior parietal scalp, formalin. Quantity/Size: ??Three, ranging from 1.0-1.4 cm. Tissue Description: 0.9 x 0.5 x 0.2 cm shave of white skin with detached sellers white disc wall fragments. Sections/Processi ng: Entirely submitted in 3 cassettes as follows: ?A1: ??Skin, inked and trisected ?A2-A3: ??wall fragments ??sns 07/31/2019 9:26 PM EDT [facility] SPECIMEN FROM SKIN / Unknown 07/29/2019 11:19 AM EDT 07/29/2019 11:19 AM EDT Og Quiroz MD PATHOLOGY/CYTOLOGY O MICKY Performing Organization Address City/State/[facility] Co de Phone Number [facility] [place] [address] documented in this encounter Visit Diagnoses Not on filedocumented in this encounter Care Teams Maritime Guard Relationship Specialty Start Date End Date Kayla Jalloh, TYRA [address] [place] [address] PCP - General Family Medicine 07/24/18 11/19/21 documented as of this encounter
--- OUTSIDE RECORDS SUMMARY | 2023-11-03 00:27 | XMS_ITS | Encounter Summary ---
Author Organization [facility] [place] [address] Care Team Providers Care Wired Sweatband Cutter Name Role Phone Diane Jon MD Primary Care Provider [phone] Encounter Details Date Type Department Care Team (Late st Contact Info) Description 06/14/2012 2:11 PM EDT - 06/14/2012 11:59 PM EDT Hospital Encounter MRI at [facility] [place] [phone] Social History Tobacco Use Types Packs/Day Years Used Date Smoking Tobacco: Never Assessed Sex and Gender Information Value Date Recorded Sex Assigned at Not on file Gender Identity Not on file Sexual Orientation Not on file documented as of this encounter Medications at Time of Discharge Medication Sig Dispensed Refills Start Date End Date albuterol (PROVENTIL HFA;VENTOLIN HFA) 90 mcg/Actuation inhaler 05/01/2006 ibuprofen (ADVIL;MOTRIN) 800 mg tablet LEVOTHYROXINE SODIUM (SYNTHROID ORAL) 12/200408/06/2020 documented as of this encounter Miscellaneous Notes * Miscellaneous - Provider, Scanning - 06/26/2012 9:33 AM EDT documented in this encounter Plan of Treatment Upcoming Encounters Date Type Department Care Team (Late st Contact Info) Description 09/23/2024 1:30 PM EDT Office Visit Dermatology at [place] [address] [facility] [place] [address] Og Quiroz MD [address], [place] [address] documented as of this encounter Procedures Procedure Name Priority Date/Time Associated Diagnosis Comments MRI HEAD ANGIOGRAM WO CONTRAST Routine 06/14/2012 3:51 PM EDT documented in this encounter Results * MRI head angiogram WO contrast (06/14/2012 3:51 PM EDT) Anatomical Region Laterality Modality Head Magnetic Resonan ce 06/14/2012 3:51 PM EDT Narrative 06/14/2012 4:40 PM EDT Examination MR Brain without Contrast Clinical History DYSEQUILIBRIUM WORSENING OVER 4 MONTHS/LISTS TO LEFT Comparison None. Technique Standard MRI imaging of the brain is done without contrast. ??This is accompanied by 3D aext-kd-rzavic MR angiography of the [place] of [place]. Findings The diffusion pattern is unremarkable. ??Scattered areas of T2 prolongation in the white matter seen on FLAIR, bloody compatible. ??The brain pattern is otherwise unremarkable with no sign of mass or hydrocephalus. ??The posterior fossa in particular appears normal. ?? The tsku-ny-tedogj angiography does not include the proximal vertebral arteries in their intracranial portions. ??Those portions of the vertebral and basilar arteries that are visualized appear normal as are the carotid distributions. ?? The high cervical carotid arteries are also not included in the study either. ?? In the intracranial circulation, there are no indications of aneurysm or vascular malformation. Impression No acute intracranial abnormality. ??The MR angiogram is generally normal although the proximal intracranial vertebral arteries are not demonstrated. Procedure Note Ruddy Coker MD - 06/14/2012 Examination MR Brain without Contrast Clinical History DYSEQUILIBRIUM WORSENING OVER 4 MONTHS/LISTS TO LEFT Comparison None. Technique Standard MRI imaging of the brain is done without contrast. This is accompanied by 3D nppx-la-kspbvr MR angiography of the [place] of [place]. Findings The diffusion pattern is unremarkable. Scattered areas of T2 prolongationin the white matter seen on FLAIR, bloody compatible. The brain pattern is otherwise unremarkable with no sign of mass or hydrocephalus. Theposterior fossa in particular appears normal. The fbpy-yw-bihxbs angiography does not include the proximal vertebralarteries in their intracranial portions. Those portions of the vertebral andbasilar arteries that are visualized appear normal as are the carotiddistributions. The high cervical carotid arteries are also not included in the studyeither. In the intracranial circulation, there are no indications of aneurysm or vascular malformation. Impression No acute intracranial abnormality. The MR angiogram is generally normal although the proximal intracranial vertebral arteries are notdemonstrated. Diane Jon MD IMG MRI ORDERABLES documented in this encounter Visit Diagnoses Not on filedocumented in this encounter Care Teams Wired Sweatband Cutter Relationship Specialty Start Date End Date Diane Jon MD [address] [place] [address] PCP - General 06/13/12 12/04/14 documented as of this encounter
--- OUTSIDE RECORDS SUMMARY | 2023-11-03 00:27 | XMS_ITS | Encounter Summary ---
[place] [address] Care Team Providers Care Public Health Aides Teacher Name Role Phone Yamileth Norris APRN Primary Care Provider [phone] Reason for Visit * Reason Comments Skin Check * Consultation (Routine) - Closed Specialty Diagnoses / Procedures Referred By Pastora livingston Referred To Contact Dermatology Diagnoses KERATOSIS Yamileth Norris APRN [address] [place] [address] Og Quiroz MD [address] [place] [address], [facility] [place] [address] Referral ID Status Reason Start Date Expiration Date V isits Requested Visits Authorized [id number] Closed Consult, [facility] 12/08/2014 12/08/2015 1 1 Encounter Details Date Type Department Care Team (Late st Contact Info) Description 06/15/2015 10:00 AM EDT Office Visit Dermatology at [address] [address] Og Quiroz MD [address] [place] [address], [facility] [place] [address] Seborrheic keratosis, inflamed; Basal cell carcinoma Social History Tobacco Use Types Packs/Day Years Used Date Smoking Tobacco: Never Assessed Sex and Gender Information Value Date Recorded Sex Assigned at Not on file Gender Identity Not on file Sexual Orientation Not on file documented as of this encounter Progress Notes * Og Quiroz MD - 06/15/2015 10:14 AM EDT Problem: Skin lesion of concern. Chichi is a 74-year-old woman who in August of [address] Marie and had some seborrheic keratoses removed. These have recurred, and the patient would also like to have a number of new lesions checked. She spent a fair amount of time over the years outdoors in the sun. Physical examination reveals a pearly papule on the right lower nasolabial fold concerning for possible BCCA. She has an irritated seborrheic keratoses, one on the right voodoo, one on the left preauricular cheek. She has what appears to be a pilar cyst of the right parietal scalp. She has a couple tags, one by the left and one by the right angle of the mouth. Otherwise, examination of the chest and the back reveals seborrheic keratoses. One above her left breast is desquamated a fair amount. Hands, arms, forearms are benign, as is the examination of the rest of the head and neck, chest and back, hands, arms, forearms. Assessment and Plan: 1. Irritated seborrheic keratoses, right voodoo, left preauricular cheek, and tags at angles of mouth. a. Today sites were anesthetized and lightly electrodesiccated to remove them, as they are often rubbed and irritated. 2. BCCA, probable, right lower nasolabial fold. a. After obtaining informed consent site was anesthetized and removed with shave C and D. b. After curettage site measured 1 cm in diameter. c. Wound care instructions and supplies given. d. The patient is desirous of regular skin checkups. Will return to the clinic in the fall for a repeat skin check. Note: Patient reassured about what appears to be a pilar cyst of the right parietal scalp. If this grows or becomes symptomatic (which it is not now), the patient knows to call and return for potential excision and removal. COPY: Yamileth Norris A.P.R.N. documented in this encounter Plan of Treatment Upcoming Encounters Date Type Department Care Team (Late st Contact Info) Description 09/23/2024 1:30 PM EDT Office Visit Dermatology at [address] [place] [address] Og Quiroz MD [address], [place] [address] documented as of this encounter Visit Diagnoses Diagnosis Seborrheic keratosis, inflamed Inflamed seborrheic keratosis Basal cell carcinoma Basal cell carcinoma of skin, site unspecified documented in this encounter Care Teams Public Health Aides Teacher Relationship Specialty Start Date End Date Yamileth Norris APRN PCP - General Family Medicine 12/05/14 07/23/18 documented as of this encounter
--- OUTSIDE RECORDS SUMMARY | 2023-11-03 00:27 | XMS_ITS | Encounter Summary ---
Author Organization [facility] Address [address] [place] [address] Care Team Providers Care Rip Tailer Name Role Phone Unavailable Primary Care Provider Unavailabl e Encounter Details Date Type Department Care Team (Late st Contact Info) Description 05/01/2006 Results Only [facility] [address] [place] [address] [place] Arizmendi, [place] [address] Social History Tobacco Use Types [...] Priority Date/Time Associated Diagnosis Comments CYTOPATHOLOGY Routine 05/01/2006 0:00 EST documented in this encounter Results * CYTOPATHOLOGY (05/01/2006 0:00 EST) Pathology Report: CYTOPATHOLOGY REPORT Reports generated via electronic interface contain original data; however they are lacking the format of the original report. Caution should be taken when reading/interpreti ng unformatted reports. Name: ? CHICHI LOOMIS ? Accession #: ? [id number] : ? 1940 (Age: 65) ??F ?Collect Date: ? 05/01/2006 Location: ? [facility] ? Receive Date: ? 05/03/2006 Provider: ?GUANACO ARIZMENDI PULP BLEACHER Copy to: ? Specimen/Source: ?ThinPrep Pap Test, Cervix, processed on [employer] ThinPrep Imaging System, with manual evaluation Last Menstrual Period: ? 1998 Other: ? HPVA - HPV testing requested if ASC-US on the current ThinPrep Pap test. ? SPECIMEN ADEQUACY ? Satisfactory for Evaluation - transformation zone component present GENERAL CATEGORIZATION ? Negative for Intraepithelial Lesion or Malignancy ? Document reviewed and electronically signed by: ? ALONSO Ruiz(ASCP) ? Report Date: ??05/08/2006 13:48 End of Report ROCCO SANCHEZ 05/01/2006 05/03/2006 Guanaco Arizmendi PULP BLEACHER PATHOLOGY HIRA NEGRON ROCCO SANCHEZ [address] [place] [address] documented in this encounter Visit Diagnoses Not on filedocumented in this encounter
--- OUTSIDE RECORDS SUMMARY | 2023-11-03 00:27 | XMS_ITS | Encounter Summary ---
Author Organization [facility] [place] [address] Care Team Providers Care Sports Betting Manager Name Role Phone Tom Robertson DNP Primary Care Provider Reason for Visit * Reason Comments Annual Exam Encounter Details Date Type Department Care Team (Late st Contact Info) Description 09/21/2023 1:30 PM EDT Office Visit Dermatology at [address] [place] [phone] Og Quiroz MD [address], [place] [address] History of SCC (squamous cell carcinoma) of skin; Seborrheic keratosis; History of basal cell carcinoma Social History Tobacco Use Types Packs/Day Years Used Date Smoking Tobacco: Former Smokeless Tobacco: Never Sex and Gender Information Value Date Recorded Sex Assigned at Not on file Gender Identity Not on file Sexual Orientation Not on file documented as of this encounter Progress Notes * Og Quiroz MD - 09/21/2023 1:30 PM EDT Problem: 1. Annual skin checkup 2. 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 Previously seen by Dr. Marie for seborrheic keratoses 4. 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 She has not noted any new lesions or concerns sinceher last visit. Would like me to again check her numerous seborrheic keratoses. Physical examination of the head and the neck the chest the back the hands arms forearms the thighsand calves is benign. She continues to have a seborrheic keratosis in the right frontal parietal scalp. She has numerous seborrheic keratoses on her back. She has no evidence of recurrence at the central forehead SCCA treatment site from April 2022. Assessment plan: Benign skin examination 1. Patient reassured about today's benign skin examination 2. Recommend that I see her again in another year for repeat check. History of SCCA central forehead May 19 1. No evidence of recurrence. 2. Patient reassured. CC: Tom Robertson DNP documented in this encounter Plan of Treatment Upcoming Encounters Date Type Department Care Team (Late st Contact Info) Description 09/23/2024 1:30 PM EDT Office Visit Dermatology at [place] [address] [place] [address] Og Quiroz MD [address] [facility], [place] [address] documented as of this encounter Visit Diagnoses Diagnosis History of SCC (squamous cell carcinoma) of skin Personal history of other malignant neoplasm of skin Seborrheic keratosis Other seborrheic keratosis History of basal cell carcinoma Personal history of other malignant neoplasm of skin documented in this encounter Care Teams Sports Betting Manager Relationship Specialty Start Date End Date Tom Robertson DNP [address] [place] [address] PCP - General Family Medicine 09/13/22 documented as of this encounter
--- OUTSIDE RECORDS SUMMARY | 2023-11-03 00:27 | XMS_ITS | Encounter Summary ---
Author Organization [facility] [place] [address] Care Team Providers Care Cable Tool Operator Name Role Phone VenuKayla quiles TYRA Primary Care Provider [phone] Reason for Visit * Reason Comments Suture / Staple Removal Encounter Details Date Type Department Care Team (Late st Contact Info) Description 08/05/2019 3:15 PM EDT Office Visit Dermatology at [address] [place] [phone] Og Quiroz MD [address], [place] [address] Visit for suture removal Social History Tobacco Use Types Packs/Day Years Used Date Smoking Tobacco: Former Smokeless Tobacco: Never Sex and Gender Information Value Date Recorded Sex Assigned at Not on file Gender Identity Not on file Sexual Orientation Not on file documented as of this encounter Progress Notes * Og Quiroz MD - 08/05/2019 3:15 PM EDT Problem: 1. Follow-up for suture moving by results 2. 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 ??Previously seen by Dr. Marie for seborrheic keratoses Chichi follows up for suture removal. The biopsy from the posterior parietal scalp infected come back showing fragments of a pilar cyst. There is no evidence of any tumor. The site has healed beautifully. She still has the seborrheic keratoses on her forehead, they have not yet desquamated following the LN2 last visit. Physical examination confirms excellent healing of the posterior parietal scalp cyst site. There isno sign of infection. She still has the 2 seborrheic keratosis on her forehead unchanged since her last visit. Assessment and plan: Pilar cyst posterior parietal scalp 1. Patient sutures removed today 2. June DC wound care instructions 3. 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 No evidence recurrence 2. Patient reassured 3. Return to clinic in a year for repeat check. If doing well may plan just PRN visits thereafter. Cc: Kayla Jalloh CHIEF RISK OFFICER documented in this encounter Plan of Treatment Upcoming Encounters Date Type Department Care Team (Late st Contact Info) Description 09/23/2024 1:30 PM EDT Office Visit Dermatology at [place] [address] [place] [address] Og Quiroz MD [address], RIGO A DERMATOLOGY [place], [place] [id number] documented as of this encounter Visit Diagnoses Diagnosis Visit for suture removal Encounter for removal of sutures documented in this encounter Care Teams Cable Tool Operator Relationship Specialty Start Date End Date Kayla Jlaloh APRN [address] [facility] 1 [place] [address] PCP - General Family Medicine 07/24/18 11/19/21 documented as of this encounter
--- OUTSIDE RECORDS SUMMARY | 2023-11-03 00:27 | XMS_ITS | Encounter Summary ---
Author Organization [facility] Address [address] [place] [address] Care Team Providers Care Child Care Counselor Name Role Phone Unavailable Primary Care Provider Unavailabl e Encounter Details Date Type Department Care Team (Late st Contact Info) Description 12/18/2002 Results Only [facility] [address] [place] [address] Quinton Ayala MD [address] [place] [phone] Social History Tobacco Use Types Packs/Day Years Used Date Smoking Tobacco: Never Assessed Sex and Gender Information Value Date Recorded Sex Assigned at Not on file Gender Identity Not on file Sexual Orientation Not on file documented as of this encounter Plan of Treatment Not on file documented as of this encounter Procedures Procedure Name Priority Date/Time Associated Diagnosis Comments SURGICAL PATHOLOGY Routine 12/18/2002 0 :00 EDT documented in this encounter Results * SURGICAL PATHOLOGY (12/18/2002 0:00 EDT) Pathology Report: SURGICAL PATHOLOGY REPORT Reports generated via electronic interface contain original data; however they are lacking the format of the original report. Caution should be taken when reading/interpreti ng unformatted reports. Name: ? CHICHI LOOMIS ? Accession #: ? [id number] ? : ? 1940 (Age: 62) ??F ? Collect Date: ? 12/18/2002 ? Location: ? [facility] ? Receive Date: ? 12/18/2002 ? Provider: MARLENI AYALA MD Copy to: OPAL SCHROEDER MD ? Final Pathologic Diagnosis: ? Colon, 18.0 cm, polyp, biopsy: - Fragments of colonic mucosa with surface hyperplastic changes. Document reviewed and electronically signed by: Estevan Braswell MD Report ??Date: 12/20/2002 15:41 By the signature above, the attending physician certifies that he/she has personally conducted a gross and/or microscopic examination of the described specimens and rendered or confirmed the above diagnosis. Specimen(s) Received: ? Polyp @ 18 cm Clinical History: ? Polyp @ 18 cm Gross Description: ? Received in Hollande's fixative labelled Sawyer and #1 polyp at 18 cm are four sellers-pink irregular tissue fragments which vary in size from 0.2 x 0.1 x 0.1 cm to 0.5 x 0.3 x 0.3 cm. ??The specimen is entirely submitted in one cassette. (Dr. Connors[place] [place] End of Report [facility] 12/18/2002 12/18/2002 15: 48 EDT Quinton Ayala MD PATHOLOGY ORDERABLES [facility] [address] [place] [address] documented in this encounter Visit Diagnoses Not on filedocumented in this encounter
--- OUTSIDE RECORDS SUMMARY | 2023-11-03 00:27 | XMS_ITS | Clinical Summary ---
Author Organization [facility] Address [address] [place] [address] Care Team Providers Care Cnc Laser Operator Name Role Phone Diane Jon MD Primary Care Provider [phone] Social History Tobacco Use Types Packs/Day Years Used Date Smoking Tobacco: Never Assessed Sex and Gender Information Value Date Recorded Sex Assigned at Not on file Gender Identity Not on file Sexual Orientation Not on file Plan of Treatment Health Maintenance Due Date Last Done Comments RSV Immunization ( o r 60+ Years) (1 - 1-dose 60+ series) 2002 Fall Risk Screening 12/14/2007 COVID-19 Vaccine (2022-24 season) 2022 Care Teams Cnc Laser Operator Relationship Specialty Start Date End Date Diane Jon MD [address] [place] [address] PCP - General 07/31/13
--- OUTSIDE RECORDS SUMMARY | 2023-11-03 00:27 | XMS_ITS | Encounter Summary ---
Author Organization [facility] [place] [address] Care Team Providers Care Fuel Agent Name Role Phone Tom Robertson DNP Primary Care Provider Encounter Details Date Type Department Care Team (Latest Contact Info) Description 09/21/2023 Travel Social History Tobacco Use Types Packs/Day Years [...] 1:30 PM EDT Office Visit Dermatology at [address] [place] [phone] Og Quiroz MD [address], [place] [address] documented as of this encounter Visit Diagnoses Not on filedocumented in this encounter Care Teams Fuel Agent Relationship Specialty Start Date End Date Tom Robertson DNP [address] [place] [address] PCP - General Family Medicine 09/13/22 documented as of this encounter
--- OUTSIDE RECORDS SUMMARY | 2023-11-03 00:27 | XMS_ITS | Encounter Summary ---
Author Organization [facility] [place] [address] Care Team Providers Care Stator Connector Name Role Phone Diane Jon MD Primary Care Provider [phone] Encounter Details Date Type Department Care Team (Latest Contact Info) Description 06/14/2012 2:10 PM EDT - 06/14/2012 11:59 PM EDT Hospital Encounter MRI at [facility] [place] [phone] CLINIC, Diane Nuno MD [address] [place] [address] Discharge Disposition: Home Social History Tobacco Use [...] ORAL) 12/200408/06/2020 documented as of this encounter Plan of Treatment Upcoming Encounters Date Type Department Care Team (Late st Contact Info) Description 09/23/2024 1:30 PM EDT Office Visit Dermatology at [place] [address] [place] [address] Og Quiroz MD [address], [place] [address] documented as of this encounter Procedures Procedure Name Priority Date/Time Associated Diagnosis Comments MRI BRAIN WO CONTRAST Routine 06/14/2012 3:51 PM EDT documented in this encounter Results * MRI brain WO contrast (06/14/2012 3:51 PM EDT) Anatomical Region Laterality Modality Head Magnetic Resonan ce 06/14/2012 3:51 PM EDT Narrative 06/14/2012 4:40 PM EDT Examination MR Brain without Contrast Clinical History DYSEQUILIBRIUM WORSENING OVER 4 MONTHS/LISTS TO LEFT Comparison None. Technique Standard MRI imaging of the brain is done without contrast. ??This is accompanied by 3D nmsx-ua-rzukvp MR angiography of the lower [place]. Findings The diffusion pattern is unremarkable. ??Scattered areas of T2 prolongation in the white matter seen on FLAIR, bloody compatible. ??The brain pattern is otherwise unremarkable with no sign of mass or hydrocephalus. ??The posterior fossa in particular appears normal. ?? The ilwp-mb-ybrafm angiography does not include the proximal vertebral [...] without contrast. This is accompanied by 3D ptxz-ie-xarlkm MR angiography of the lower [place]. Findings The diffusion pattern is unremarkable. Scattered areas of T2 prolongationin the white matter seen on FLAIR, bloody compatible. The brain pattern is otherwise unremarkable with no sign of mass or hydrocephalus. Theposterior fossa in particular appears normal. The spja-es-meluuv angiography does not include the proximal vertebralarteries [...] on filedocumented in this encounter Care Teams Stator Connector Relationship Specialty Start Date End Date Diane Jon MD [address] [place] [address] PCP - General 06/13/12 12/04/14 documented as of this encounter
--- OUTSIDE RECORDS SUMMARY | 2023-11-03 00:27 | XMS_ITS | Encounter Summary ---
Author Organization [facility] [address] Care Team Providers Care Front Edger Name Role Phone VenuKayla quiles TYRA Primary Care Provider [phone] Encounter Details Date Type Department Care Team (Late st Contact Info) Description 08/11/2020 Telephone Dermatology at [address] [address] Chichi Sotelo LPN Social History Tobacco Use Types Packs/Day Years Used Date Smoking Tobacco: Former Smokeless Tobacco: Never Sex and Gender Information Value Date Recorded Sex Assigned at Not on file Gender Identity Not on file Sexual Orientation Not on file documented as of this encounter Miscellaneous Notes * Telephone Encounter - Chichi Sotelo LPN - 08/11/2020 8:48 AM EDT A- shave left upper lateral breast B- Shave left lateral calf Dx: A- ozzy K benign mole B- Actinic keratosis sun damaged spot No further treatment necessary, return to clinic 08/12/21 Reviewed above information with patient. She voiced understanding. documented in this encounter Plan of Treatment Upcoming Encounters Date Type Department Care Team (Late st Contact Info) Description 09/23/2024 1:30 PM EDT Office Visit Dermatology at [address] [address] Og Quiroz MD [address] [place] [address], [place] [address] documented as of this encounter Visit Diagnoses Not on filedocumented in this encounter Care Teams Front Edger Relationship Specialty Start Date End Date Kayla Jalloh, TYRA [address] [facility] 1 [place] [address] PCP - General Family Medicine 07/24/18 11/19/21 documented as of this encounter
--- OUTSIDE RECORDS SUMMARY | 2023-11-03 00:27 | XMS_ITS | Referral Summary ---
Author Organization [facility] Address [address] [place] [address] Care Team Providers Care Strategic Account Director Name Role Phone Diane Jon MD Primary Care Provider [phone] Social History Tobacco Use Types Packs/Day Years Used Date Smoking Tobacco: Never Assessed Sex and Gender Information Value Date Recorded Sex Assigned at Not on file Gender Identity Not on file Sexual Orientation Not on file Plan of Treatment Not on file Care Teams Strategic Account Director Relationship Specialty Start Date End Date Diane Jon MD [address] [place], [place] [address] PCP - General 07/31/13
--- OUTSIDE RECORDS SUMMARY | 2023-11-03 00:27 | XMS_ITS | Encounter Summary ---
Author Organization [facility] [place] [address] Care Team Providers Care Poured Pipe Maker Name Role Phone Tom Robertson DNP Primary Care Provider [phone] Encounter Details Date Type Department Care Team (Latest Contact Info) Description 09/13/2022 Travel Social History Tobacco Use Types Packs/Day [...] 1:30 PM EDT Office Visit Dermatology at [address] [place] [phone] Og Quiroz MD [address], [place] [address] documented as of this encounter Visit Diagnoses Not on filedocumented in this encounter Care Teams Poured Pipe Maker Relationship Specialty Start Date End Date Tom Robertson DNP [address] [place] [address] PCP - General Family Medicine 09/13/22 documented as of this encounter
--- OUTSIDE RECORDS SUMMARY | 2023-11-03 00:27 | XMS_ITS | Encounter Summary ---
Author Organization [facility] Address [facility] [place] [address] Care Team Providers Care Web Content Writer Name Role Phone Kayla Jalloh APRN Primary Care Provider [phone] Encounter Details Date Type Department Care Team (Late st Contact Info) Description 07/30/2019 External [place] [phone] Provider, Scanning Social History Tobacco Use Types Packs/Day Years [...] 1:30 PM EDT Office Visit Dermatology at [address] [place] [phone] Og Quiroz MD [address] [facility], [place] [address] documented as of this encounter Procedures Procedure Name Priority Date/Time Associated Diagnosis Comments SURGICAL PATHOLOGY SCAN Routine 07/30/2019 documented in this encounter Results * Scan Doc: Surgical Pathology (07/30/2019) Historical Provider MD MELENDEZ MGR SCAN EX T ORDR/RSLT documented in this encounter Visit Diagnoses Not on filedocumented in this encounter Care Teams Web Content Writer Relationship Specialty Start Date End Date Kayla Jalloh APRN [address] [place] [address] PCP - General Family Medicine 07/24/18 11/19/21 documented as of this encounter
--- OUTSIDE RECORDS SUMMARY | 2023-11-03 00:27 | XMS_ITS | Encounter Summary ---
Author Organization [facility] [place] [address] Care Team Providers Care Corporate Safety Manager Name Role Phone Yamileth Norris TYRA Primary Care Provider [phone] Reason for Visit * Reason Comments Skin Check Encounter Details Date Type Department Care Team (Late st Contact Info) Description 12/22/2015 10:00 AM EDT Office Visit Dermatology at [address] [place] [address] Og Quiroz MD [address], [place] [address] Seborrheic keratosis, inflamed; Basal cell carcinoma Social History Tobacco Use Types Packs/Day Years Used Date Smoking Tobacco: Former Sex and Gender Information Value Date Recorded Sex Assigned at Not on file Gender Identity Not on file Sexual Orientation Not on file documented as of this encounter Progress Notes * Og Quiroz MD - 12/22/2015 10:00 AM EDT PROBLEM: 1. 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 2. Repeat skin checkup. 3. Previously seen by Dr. Marie for seborrheic keratoses. Chichi follows up and is doing well. She is here for a 6-month check. She has not noted any new lesions of concern. Patient does have a seborrheic keratosis also present in the right parietal scalp. Physical examination shows excellent healing of the right lower nasolabial fold BCCA treatment site. There is no evidence of recurrence. Careful examination of the face reveals a few small seborrheic keratoses peripherally and small early skin tags on the left upper lateral eyelid. These are totally asymptomatic and she does not desire any treatment for these. She has several seborrheic keratoses present on the flanks and abdomen, and on her shoulders, 2 are often rubbed and irritated by her bra strap and she would like to have these treated with LN2. Otherwise examination of the head and neck, the chest, the back, hands, arms, thighs and the calves is benign. ASSESSMENT AND PLAN: 1. Seborrheic keratoses, irritated, shoulders. a. LN2 x2 applied to each of 2 sites. b. Patient reassured about remainder of benign skin examination and benign seborrheic keratoses. 2. History of BCCA right lower nasolabial fold. a. No evidence of recurrence; patient reassured. Return to clinic now will be on a p.r.n. basis. cc: Yamileth Norris APRN documented in this encounter Plan of Treatment Upcoming Encounters Date Type Department Care Team (Late st Contact Info) Description 09/23/2024 1:30 PM EDT Office Visit Dermatology at [place] [address] [place] [address] Og Quiroz MD [address] [facility] [place] [address] documented as of this encounter Visit Diagnoses Diagnosis Seborrheic keratosis, inflamed Inflamed seborrheic keratosis Basal cell carcinoma Basal cell carcinoma of skin, site unspecified documented in this encounter Care Teams Corporate Safety Manager Relationship Specialty Start Date End Date Yamileth Norris APRN PCP - General Family Medicine 12/05/14 07/23/18 documented as of this encounter
--- OUTSIDE RECORDS SUMMARY | 2023-11-03 00:27 | XMS_ITS | Encounter Summary ---
Author Organization [facility] Address [address] [place] [address] Care Team Providers Care Labor Relations Specialist Name Role Phone Unavailable Primary Care Provider Unavailabl e Encounter Details Date Type Department Care Team (Late st Contact Info) Description 07/29/2013 Results Only [facility] ([facility]) [address] [place] [id number] July Guillen MD [address] [place] [address] Social History Tobacco Use Types Packs/Day Years Used Date Smoking Tobacco: Never Assessed Sex and Gender Information Value Date Recorded Sex Assigned at Not on file Gender Identity Not on file Sexual Orientation Not on file documented as of this encounter Plan of Treatment Not on file documented as of this encounter Procedures Procedure Name Priority Date/Time Associated Diagnosis Comments SURGICAL PATHOLOGY Routine 07/29/2013 18 :36 EDT documented in this encounter Results * SURGICAL PATHOLOGY (07/29/2013 18:36 EDT) Pathology Report: SURGICAL PATHOLOGY REPORT Reports generated via electronic interface contain original data; however they are lacking the format of the original report. Caution should be taken when reading/interpreti ng unformatted reports. Name: ? CHICHI LOOMIS ? Accession #: ? [id number] ? : ? 1940 (Age: 72) ??F ? Collect Date: ? 07/29/2013 ? Location: ? [facility] ? Receive Date: ? 07/29/2013 ? Provider: JULY GUILLEN MD Copy to: CRISTINA ELENA MD ? Final Pathologic Diagnosis: RECTUM, POLYP(S), BIOPSY: - ??Fragments of hyperplastic polyp(s) with features of mucosal prolapse. Document reviewed and electronically signed by: ESTEFANÍA PA MD Report ??Date: 07/30/2013 15:05 By the signature above, the attending physician certifies that he/she has personally conducted a gross and/or microscopic examination of the described specimens and rendered or confirmed the above diagnosis. Specimen(s) Received: Rectum bx Clinical History: Hx polyps Gross Description: ? Received in formalin labelled with proper patient identification (initials L, S) and rectum bx are two pink-sellers tissues (0.2 x 0.2 x 0.2 cm and 0.3 x 0.3 x 0.2 cm). Entirely submitted in 1. Abbey Freitas 07/30/2013 08:17 AM End of Report [facility] 07/29/2013 18:3 6 EDT 07/29/2013 18:36 EDT July Guillen MD PATHOLOGY ORDERABLE S [facility] [address] [place] [address] documented in this encounter Visit Diagnoses Not on filedocumented in this encounter
--- OUTSIDE RECORDS SUMMARY | 2023-11-03 00:27 | XMS_ITS | Encounter Summary ---
Author Organization [facility] [address] Care Team Providers Care Salvage Inspector Name Role Phone Unknown Primary Care Provider Unavailabl e Encounter Details Date Type Department Care Team (Latest Contact Info) Description 05/24/2022 Travel Social History Tobacco Use Types Packs/Day [...] 1:30 PM EDT Office Visit Dermatology at [place] [address] [facility] [place] [phone] Og Quiroz MD [address] [facility], [place] [address] documented as of this encounter Visit Diagnoses Not on filedocumented in this encounter Care Teams Salvage Inspector Relationship Specialty Start Date End Date Unknown None PCP - General 11/20/21 09/12/22 documented as of this encounter
--- NOTE | 2023-11-03 08:15 | DI.MAMMO_ITS ---
Exam(s) MAMMO SCREENING EXAM: MAMMO SCREENING CLINICAL HISTORY: screening,z12.39 TECHNIQUE: Bilateral full field digital CC and MLO mammographic images were obtained with 3D tomosyn thesis and utilizing computer aided detection (CAD). COMPARISON: Available for comparison. FINDINGS: Masses/Architectural Distortion: None seen. Microcalcifications: No suspicious pleomorphic-type are seen. Skin Thickening/Nipple Retraction: None. IMPRESSION: 1. No significant interval change with no specific features of malignancy noted. 2. Unless there is more urgent need, screening mammography is recommended, as per [place] [employer] guidelines. BI-RADS Category 1 - Negative Breast Density - Category A - Almost entirely fatty Breast density category C or D implies that the patient has dense breast tissue. Dense breast tissue is very common and is not abnormal but dense breast tissue can make it harder to find cancer on a ma mmogram. Also, dense breast tissue may increase their breast cancer risk. This information about the result of the mammogram report was provided to the patient to raise their awareness. Use this report when you speak with the patient about their risks for breast cancer, which includes their family hist ory. At that time, you may recommend for more screening tests (Ultrasound or MRI) as they might be us eful based on their risk. A negative radiographic report should not delay biopsy if a dominant or clinically suspicious mass is present. Up to ten percent of cancers are not identified on mammography. A negative report may reinforce clinical impression. Adenosis and dense breasts may obscure an underlying neoplasm. False positive reports average 6 to 10%. Patient will receive a letter notifying them of these results.
== END 2023-11-03 00:45 ==
LOC: DI 00:26
PROVIDERS: PCP Nurse Practitioner Family; Visit Provider Nurse Practitioner Family
DX: Z12.31 Encounter for screening mammogram for malignant neoplasm of breast (principal)
CPT/HCPCS: 77063; 77067

== ENCOUNTER 2024-02-29 04:00 | Outpatient (CLI) | payer MEDICARE, SELFPAY ==
[2024-02-29 13:01] LABS: Anion Gap 6.4 mmol/L (3-11); BUN 29 mg/dL (7-18); CO2 29.6 mmol/L (21.0-32.0); CREATININE 1.3 mg/dL (0.55-1.02); Calcium 9.5 mg/dL (8.5-10.1); Chloride 107 mmol/L (98-107); Estimated GFR 41.31 (mL/min/1.73m2); Glucose 116 mg/dL (74-106); Potassium 3.9 mmol/L (3.5-5.1); Sodium 143 mmol/L (136-145); TSH (W/Ref FT4) 2.39 uIU/mL (0.36-3.74)
== END 2024-02-29 04:01 | disposition home or self-care (01) ==
LOC: LOS 04:01
PROVIDERS: PCP Nurse Practitioner Family; Visit Provider Nurse Practitioner Family
DX: N18.30 Chronic kidney disease, stage 3 unspecified (principal); E03.9 Hypothyroidism, unspecified
CPT/HCPCS: 36415; 80048; 84443

== ENCOUNTER 2024-03-05 15:52 | Outpatient (REF) | payer MEDICARE, SELFPAY ==
[2024-03-05 21:15] LABS: HCT 40.5 % (36.0-46.0); MCH 31.4 pg (27.0-33.0); MCHC 32.1 % (32.0-36.0); MCV 98 fL (80-95); MPV 9.9 fL (8.0-11.0); Platelet Count 243 10^3/uL (130-400); RBC 4.14 10^6/uL (3.93-5.22); RDW 13.9 % (11.7-14.6); WBC 9.53 10^3/uL (4.4-10.8)
[2024-03-05 21:26] LABS: ALT 16 U/L (14-59); AST 13 U/L (15-37); Albumin 3.6 g/dL (3.4-5.0); Alkaline Phosphatase 54 U/L (46-116); BUN 27 mg/dL (7-18); Bilirubin, Total 0.34 mg/dL (0.2-1.0); CREATININE 1.2 mg/dL (0.55-1.02); Calcium 9.1 mg/dL (8.5-10.1); Chloride 105 mmol/L (98-107); Estimated GFR 45.48 (mL/min/1.73m2); Glucose 109 mg/dL (74-106); Potassium 4.5 mmol/L (3.5-5.1); Sodium 141 mmol/L (136-145); Total Protein 7.2 g/dL (6.4-8.2)
[2024-03-05 21:33] LABS: Hemoglobin A1C 6.5 % (<5.7)
== END 2024-03-05 15:53 | disposition home or self-care (01) ==
LOC: LBN 15:52
PROVIDERS: PCP Nurse Practitioner Family; Visit Provider Nurse Practitioner Family
DX: N95.0 Postmenopausal bleeding (principal); R73.9 Hyperglycemia, unspecified
CPT/HCPCS: 80053; 85027; 83036

== ENCOUNTER 2024-03-14 00:19 | Outpatient (CLI) | payer MEDICARE, SELFPAY ==
--- NOTE | 2024-03-14 08:18 | DI.US_ITS ---
Exam(s) US PELVIS TRANSVAGINAL EXAM: US PELVIS TRANSVAGINAL CLINICAL HISTORY: intermittent spotting, post menopausal bleeding,n95.0 TECHNIQUE: Transabdominal and transvaginal imaging was performed using standard protocol. COMPARISON: CT CT ABDOMEN PELVIS W from 02/15/2022 FINDINGS: The transabdominal images are limited by empty bladder. UTERUS: Anteverted. 6.2 x 2.4 x 3.2 cm Endometrium: 6.5 mm , thickened for postmenopausal patient. Mildly heterogeneous appearance. No foc al mass is visible. Myometrium: Unremarkable. Cervix: Unremarkable. OVARIES: Not visualized. CUL-DE-SAC: Free fluid: None. IMPRESSION: Thickened heterogeneous endometrium could represent hyperplasia or polyps. The ovaries were not visualized. DATA REPOSITORY:
== END 2024-03-14 00:39 ==
LOC: DI 00:19
PROVIDERS: PCP Nurse Practitioner Family; Visit Provider Nurse Practitioner Family
DX: N95.0 Postmenopausal bleeding (principal)
CPT/HCPCS: 76830; 76856

== ENCOUNTER 2024-04-02 14:49 | Outpatient (REF) | payer MEDICARE, SELFPAY ==
--- NOTE | 2024-04-02 15:00 | ENDOMET_PTH ---
PATIENT: Chichi Mendoza LOC: N U#:[id number] AGE/SX: 83/F ROOM: RE04/02/[address]: Gabrielle Medina DO : 1940 BED: DIS: 04/02/2024 SPEC #: [id number] RECD: 04/02/24 17:28 STATUS: ODETTE REQ #: [id number] JANETH: 04/02/24 15:[address]: Gabrielle Medina DEPT: Surgical Specimen RECD BY: Gini Fong ENTERED: 04/02/24 17:28 SP TYPE: Endomet OTHR DR: Tom Chou DNP Tissues: 1 - ENDOMETRIUM BX/MICHELE Procedures: GROSS AND MICRO LEVEL 4 Comments: [id number]
== END 2024-04-02 14:50 | disposition home or self-care (01) ==
LOC: LBN 14:49
PROVIDERS: PCP Nurse Practitioner Family; Visit Provider Obstetrics & Gynecology
DX: N95.0 Postmenopausal bleeding (principal); D26.0 Other benign neoplasm of cervix uteri; R93.89 Abnormal findings on diagnostic imaging of other specified body structures
CPT/HCPCS: 88305

== ENCOUNTER 2024-04-22 03:05 | Outpatient (CLI) | payer MEDICARE, SELFPAY ==
[2024-04-22 11:47] LABS: Abs Immature Grans 0.08 10^3/uL (0.0-0.06); Absolute Basophil Count 0.03 10^3/uL (0.0-0.2); Absolute Eosinophil Count 0.26 10^3/uL (0.0-0.7); Absolute Lymphocyte Count 1.82 10^3/uL (1.2-3.4); Absolute Monocyte Count 0.75 10^3/uL (0.1-0.8); Absolute Neutrophil Count 4.75 10^3/uL (1.2-6.7); Basophils % 0.4 %; Eosinophils % 3.4 %; HCT 38.7 % (36.0-46.0); HGB 12.8 g/dL (11.2-15.7); Lymphocytes % 23.7 %; MCH 31.8 pg (27.0-33.0); MCHC 33.1 % (32.0-36.0); MCV 96 fL (80-95); MPV 9.5 fL (8.0-11.0); Monocytes % 9.8 %; Neutrophils % 61.7 %; Platelet Count 239 10^3/uL (130-400); RBC 4.02 10^6/uL (3.93-5.22); RDW 14.3 % (11.7-14.6); RDW-SD 50.4 fL; WBC 7.69 10^3/uL (4.4-10.8)
== END 2024-04-22 03:06 | disposition home or self-care (01) ==
LOC: LBO 03:05
PROVIDERS: PCP Nurse Practitioner Family; Visit Provider Obstetrics & Gynecology
DX: Z01.818 Encounter for other preprocedural examination (principal)
CPT/HCPCS: 36415; 86850; 86900; 86901; 85025

== ENCOUNTER 2024-04-24 06:59 | Day surgery (SDC) | payer MEDICARE, SELFPAY ==
[2024-04-24 07:15] VITALS: BP 143/93; PULSE 86; RESP 16; TEMP 36.5; O2SAT 95
--- NOTE | 2024-04-24 07:28 | W.ANESPRE ---
General Info Date of Service Date Performed: 04/24/24 Height: 5 ft 2 in Weight: 82.2 kg Body Mass Index (BMI): 33.1 Surgical Procedure: Operation Date: 04/24/24 08:40 Proposed Procedure Side Surgeon p Dilation & Curettage with Hysteroscopy Gabrielle Medina DO Meds Allergies and Home Medications Allergies Allergy/AdvReac Type Severity Reaction Status Date / Time amoxicillin Allergy Mild rash Verified 04/24/24 07:26 Home Medication ?Medication ?Instructions ?Recorded chlorhexidine gluconate 0.12 % 15 ml mucous membrane DAILY #473 mL 08/30/23 mouthwash lisinopril 20 mg tablet 20 mg PO DAILY #90 tabs 02/29/24 albuterol sulfate 90 mcg/actuation 2 puff inhalation Q6H PRN #18 grams 03/05/24 aerosol inhaler hydrochlorothiazide 25 mg tablet 25 mg PO DAILY #90 tab-caps 03/05/24 ibuprofen 800 mg tablet 800 mg PO TID PRN pain #180 03/05/24 tab-caps ipratropium 0.5 mg-albuterol 3 mg 3 ml inhalation QID PRN wheezin03/05/24 (2.5 mg base)/3 mL nebulization COPD #90 mL soln levothyroxine 50 mcg tablet 50 mcg PO DAILY #90 tab-caps 03/05/24 (Synthroid) meclizine 25 mg tablet 25 mg PO BID PRN dizziness #90 tabs 03/05/24 potassium chloride 20 mEq 20 meq PO DAILY hypokalemia #90 03/05/24 tablet,extended release tabs Current Visit Medications: Current Medications Generic Name Dose Route Start Last Admin Trade Name [place]q PRN Reason Stop Dose Admin Ringer's Solution 1,000 mls @ 125 mls/hr 04/24/24 06:00 IV 05/23/24 23:59 INFUSION DEYVI IV Miscellaneous Supplies 1 each 04/24/24 06:00 Iv Access IV 05/23/24 23:59 DIRECTED DEYVI Sodium Chloride 0 ml 04/24/24 06:00 Normal Saline Flush 10 Ml Syr IV 05/23/24 23:59 PRN PRN Sodium Chloride 0 ml 04/24/24 06:00 Normal Saline 10 Ml Vial IJ 05/23/24 23:59 DIRECTED PRN Sterile Water 0 ml 04/24/24 06:00 Water,Injection,Sterile 10 Ml Vial IJ 05/23/24 23:59 DIRECTED PRN PFSH Active Problems Active Problems: Problem Status Onset Code Thickened endometrium Acute R93.89 Hyperglycemia Acute R73.9 Postmenopausal bleeding Acute N95.0 CKD (chronic kidney disease) stage 3, GFR 30-59 ml/min Acute N18.30 Obesity (BMI 30.0-34.9) Chronic E66.9 Bilateral upper abdominal discomfort Chronic R10.11, R10.12 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 She did have RLQ pain Right lower quadrant abdominal pain Vertigo (11/27/14) Knee pain Hyperlipidemia Surgical History Surgical History History of colonoscopy (~06/2020) KNEE REPAIR RIGHT Colonoscopy - [facility] 07/29/13; Tobacco Smoking/Tobacco Use Status: Former Tobacco Use Passive smoking exposure: Yes Second hand exposure: Yes Alcohol Alcohol Intake: current Alcohol intake frequency: holidays/special occasions only Substance Use Substance use: Never Substance use type: does not use Vital Signs and Lab Results Vital Signs Most Recent Vital Signs in EMR: Most Recent Vital Signs Temp Pulse Resp BP Pulse Ox 36.5 C 86 16 143/93 H 95 04/24/24 07:15 04/24/24 07:15 04/24/24 07:15 04/24/24 07:15 04/24/24 07:15 Lab Results Blood Type / Crossmatch: Antibody Screen NEGATIVE 04/22/24 Complete Blood Count: White Blood Count 7.69 10^3/uL (4.4-10.8) 04/22/24 11:22 Red Blood Count 4.02 10^6/uL (3.93-5.22) 04/22/24 11:22 Hemoglobin 12.8 g/dL (11.2-15.7) 04/22/24 11:22 Hematocrit 38.7 % (36.0-46.0) 04/22/24 11:22 Platelet Count 239 10^3/uL (130-400) 04/22/24 11:22 Complete Metabolic Panel: No Data to Display Liver Function Panel: No Data to Display Coagulation Panel: No Data to Display Cardiac Panel: No Data to Display Arterial Blood Gas: No Data to Display Venous Blood Gas: No Data to Display Pancreas Panel: No Data to Display Thyroid Panel: No Data to Display Infectious Disease: No Data to Display Blood Cultures: No Data to Display Toxicology Panel: No Data to Display Imaging and Studies Imaging and Studies Study information below may be from another EMR and interpreted by another provider. Please see original notes in EMR for more complete details. Pulmonary Function Summary: 07/13/18 IMPRESSION: Severe obstructive airways disease with significant bronchodilator response. This is associated with severe diffusion defect and markedly elevated airways resistance. Clinical correlation recommended. Anesthesia Assessment and Plan Anesthesia History Personal History: PONV Family History: No Family History of Anesthesia Complications Exercise Tolerance Exercise Tolerance: Metabolic Equivalents<4 Pertinent Negatives Pertinent Negatives: No Symptoms of GERD, No Major Cardiovascular Symptoms or Complaints and No Major Pulmonary Symptoms or Complaints Cardiac & Pulmonary Exam Cardiac Exam: Normal S1/S2 Heart Sounds Pulmonary Exam: Clear Bilateral Breath Sounds Cardiac and Pulmonary Comment:: Exp wheeze with exertion Implantable Cardiac Device Does patient have a Pacemaker or an ICD?: No Airway Exam Known Difficult Airway: No Mallampati Class: 2 Mouth Opening: Normal (> 3cm) Thyromental Distance: Less than 3 cm Neck Range of Motion: Full ROM Neck Circumference: Normal Teeth Condition: Removable Dentures/Plates Upper and Removable Dentures/Plates Lower (partial) ASA Classification ASA Score: ASA 3 Emergency Case?: No NPO Status NPO Status: NPO Clears >2 hours, Solids >8 hours Anesthesia Plan Resuscitation Status: Full Code Anesthesia Technique: General Anesthesia Airway Planned: Natural Airway Monitors Used: Standard Monitors
[2024-04-24 07:29] VITALS: BMI 33.1
[2024-04-24] MEDS: Lactated Ringers 1,000 ML 125 ML IV (07:35)
--- NOTE | 2024-04-24 09:20 | ENDO_PTH ---
PATIENT: Chichi Mendoza LOC: [facility] U#:[id number] AGE/SX: 83/F ROOM: RE04/24/[address]: Gabrielle Medina DO : 1940 BED: DIS: 04/24/2024 SPEC #: [id number] RECD: 04/24/24 10:01 STATUS: ODETTE RE #: [id number] JANETH: 04/24/24 09:[address]: Gabrielle Medina DEPT: Surgical Specimen RECD BY: Monica Bradley ENTERED: 04/24/24 10:03 SP TYPE: Endo OTHR DR: Tom Chou DNP Tissues: 1 - ENDOCERVICAL BX/CURRETTE 2 - ENDOMETRIUM BX/CURRETTE Procedures: GROSS AND MICRO LEVEL 4 Comments: [id number]
--- NOTE | 2024-04-24 09:31 | W.PM.OP ---
Operative Note Operative Note PRE-OP DIAGNOSIS: Postmenopausal bleeding, thickened endometrium, failed endometrial biopsy POST-OP DIAGNOSIS: same PROCEDURE: Hysteroscopy with dilation and curettage SURGEON: Gabrielle Medina ANESTHESIA TYPE: General:No Airway Refer to Anesthesia Record ESTIMATED BLOOD LOSS: 5 PATHOLOGY: other (1. Endocervical curettage 2. Endometrial curettage) COMPLICATIONS: None Patient was transported to: same day Patient's condition: stable Indications: Postmenopausal bleeding, failed endometrial biopsy in the office. Findings: Smooth regular atrophic endometrium. Normal cervical atrophy Procedure Description: After full informed consent was obtained, patient taken the operating suite with an IV running. She is placed in dorsal supine position and anesthesia administered. She was then placed in the modified dorsolithotomy position and prepped and draped in the usual sterile fashion. Exam under anesthesia revealed uterus that was small, midline, mobile, without evidence of adnexal masses. There was no antibiotic prophylaxis warranted. She had pneumatic compression stockings for DVT prophylaxis. At this point speculum was inserted into the vaginal vault. Cervix. Smooth, regular with the appropriate age-related atrophy. A single-tooth tenaculum was used to grasp the anterior lip of the cervix and cervical os dilated appointment of 4 mm hysteroscope could be passed without difficulty. With instillation of normal saline, hysteroscopic examination of the endometrial cavity performed. The endometrial cavity appeared smooth and regular without evidence of lesion or polyp. At this point the hysteroscope was removed and total fluid deficit was 0. A fractional dilation and curettage then performed with the first curettage of the endocervix, followed by curettage of the endometrium. Single-tooth tenaculum was then removed and the puncture sites were noted to be hemostatic. Speculum was removed from the vaginal vault and the patient was returned to the dorsal supine position She woke from anesthesia without difficulty. She was taken the postanesthesia care unit in stable condition. EBL: 5 mL Fluids: Crystalloid per anesthesia Findings: Smooth regular endometrial cavity with no lesions or polyps noted. Appropriate age-related vaginal, cervical, and endometrial atrophy Pathology: 1. Endocervical curetting 2. Endometrial curetting. Date of Procedure: 04/24/24
[2024-04-24 09:32] VITALS: BP 106/72; PULSE 76; RESP 16; TEMP 36; O2SAT 96
--- NOTE | 2024-04-24 09:46 | W.ANESPOSTOP ---
Postoperative Evaluation Date, Time and Location Date Performed: 04/24/24 Time Performed: 09:32 Patient Location: Day Surgery Unit Vital Signs Most Recent Imported Vital Signs: Most Recent Vital Signs Temp Pulse Resp BP Pulse Ox 36.0 C L 76 16 106/72 96 04/24/24 09:32 04/24/24 09:32 04/24/24 09:32 04/24/24 09:32 04/24/24 09:32 Pain Score Most Recent Pain Score: Most Recent Pain Score Pain Level 2 04/24/24 09:32 Assessment Mental Status: Awake (Alert & Oriented to Patient Baseline) Airway and Respiratory Function: Patent airway with normal (patient baseline) respiratory exam Cardiovascular Function: Hemodynamically Stable Hydration Status: Adequately Hydrated Nausea & Vomiting: No Nausea or Vomiting Pain: Pain is tolerable per patient Peripheral Nerve Block: Patient did not receive a nerve block
[2024-04-24] MEDS: Acetaminophen 500 MG TAB 1000 MG PO (10:01)
[2024-04-24 10:03] VITALS: BP 133/75; PULSE 81; RESP 16; TEMP 36.2; O2SAT 95
== END 2024-04-24 10:37 | disposition home or self-care (01) ==
PROVIDERS: PCP Nurse Practitioner Family; Visit Provider Obstetrics & Gynecology
PROC: 0UDB8ZZ Extraction of Endometrium, Via Natural or Artificial Opening Endoscopic (ICD-10-PCS; CPT 58558; principal; 2024-04-24 08:30)
DX: N95.0 Postmenopausal bleeding (principal); R93.89 Abnormal findings on diagnostic imaging of other specified body structures
CPT/HCPCS: 58558; 88305; J1885; J2003; J2371; J2405; J2704

== ENCOUNTER 2024-07-10 13:46 | Outpatient (REF) | payer MEDICARE, SELFPAY ==
[2024-07-10 21:29] LABS: Bilirubin Negative (Negative); Blood Trace-lysed (Negative); Clarity Sl Cloudy (Clear); Glucose Negative (Negative); Ketones Negative (Negative); Leukocyte Esterase Moderate (Negative); Nitrite Negative (Negative); Urobilinogen 0.2 mg/dL (Up to 0.2)
[2024-07-10 21:36] LABS: WBC >50 HPF (0-5)
[2024-07-10 21:37] LABS: Bacteria Packed HPF (Negative); C & S Indicated? Yes; Casts Negative LPF (Negative); Crystals Negative HPF (Negative); Epithelial Cells Rare HPF (Negative); Mucus Negative (Negative); Other Cells Few Transitional (Negative)
== END 2024-07-10 13:47 | disposition home or self-care (01) ==
LOC: LBN 13:46
PROVIDERS: PCP Nurse Practitioner Family; Visit Provider Nurse Practitioner Family
DX: R39.9 Unspecified symptoms and signs involving the genitourinary system (principal)
CPT/HCPCS: 81003; 81015; 87086

== ENCOUNTER 2025-01-17 00:17 | Outpatient (CLI) | payer MEDICARE, SELFPAY ==
[2025-01-17 12:21] LABS: TSH (W/Ref FT4) 2.36 uIU/mL (0.55-4.78)
[2025-01-17 12:24] LABS: Anion Gap 10 mmol/L (3-11); BUN 33 mg/dL (9-23); CO2 30.0 mmol/L (20.0-31.0); Calcium 9.8 mg/dL (8.3-10.6); Chloride 102 mmol/L (98-107); Glucose 109 mg/dL (74-106); Potassium 3.7 mmol/L (3.5-5.1); Sodium 142 mmol/L (136-145)
== END 2025-01-17 00:18 | disposition home or self-care (01) ==
LOC: LOS 00:17
PROVIDERS: PCP Nurse Practitioner Family; Visit Provider Nurse Practitioner Family
DX: E03.9 Hypothyroidism, unspecified (principal); I10 Essential (primary) hypertension
CPT/HCPCS: 36415; 80048; 84443

== ENCOUNTER → 2025-02-19 10:19 | Outpatient (BNVA) | payer MEDICARE, SELFPAY | PROVIDERS: PCP Nurse Practitioner Family; Referring Provider Nurse Practitioner Family; Visit Provider Physical Therapy Assistant | DX: Z12.11 Encounter for screening for malignant neoplasm of colon (principal); J44.9 Chronic obstructive pulmonary disease, unspecified; I12.9 Hypertensive chronic kidney disease with stage 1 through stage 4 chronic kidney disease, or unspecified chronic kidney disease; I10 Essential (primary) hypertension; Z80.0 Family history of malignant neoplasm of digestive organs | CPT/HCPCS: S0285 ==